=== PATIENT | female | born 1975 | race Caucasian/White ===

== ENCOUNTER 2016-04-25 18:02 | Emergency (ER) | payer OTHER ==
[~2016-04-25 18:02] MED LIST: CITA10TA5 PO; GABA600T PO; INSUHUMDS SC; LEVE1INJ5 SC; LISI2.5T3 PO; METF500T PO; METO200T15 PO; TOPI200T4 PO; VITA100054 PO
[2016-04-25 19:02] LABS: BASO # 0.2 K/mm3 (0.0-0.2); BASO % 1.7 % (0.0-1.0); EOS # 0.6 K/mm3 (0.0-0.50); EOS % 4.1 % (0.0-3.0); LARGE UNSTAINED CELL # 0.3 K/mm3 (0.0-0.4); LARGE UNSTAINED CELL % 2.1 % (0.0-4.0); LYMPH # 4.6 K/mm3 (1.5-4.5); LYMPH % 30.3 % (24.0-44.0); MEAN CORPUSCULAR HEMOGLOBIN 29.1 pg (27.0-33.0); MEAN CORPUSCULAR VOLUME 90.8 fl (80.0-96.0); MONO # 0.6 K/mm3 (0.0-0.8); MONO % 4.5 % (0.0-5.0); NEUTROPHILS # 8.2 K/mm3 (1.8-7.7); NEUTROPHILS % 57.3 % (36.0-66.0); PLATELET COUNT, AUTOMATED 506 k/mm3 (150-450); RED CELL DISTRIBUTION WIDTH 14.2 % (11.5-14.5); WHITE BLOOD COUNT 14.3 K/mm3 (4.0-10.0)
[2016-04-25 19:06] LABS: CALCIUM OXALATE CRYSTALS LARGE
[2016-04-25 19:16] LABS: CONTROL LINE HCG INT CTR LINE PRESENT
[2016-04-25 19:21] LABS: ANION GAP 12 MEQ/L (8-16); BLOOD UREA NITROGEN 11 MG/DL (7-18); CALCIUM LEVEL 9.4 MG/DL (8.5-10.1); CARBON DIOXIDE LEVEL 23 MEQ/L (21-32); CHLORIDE LEVEL 105 MEQ/L (98-107); CREATININE FOR GFR 1.02 MG/DL (0.55-1.02); GLOMERULAR FILTRATION RATE > 60.0 (>60); GLUCOSE, FASTING 160 MG/DL (70-105); POTASSIUM SERUM 3.7 MEQ/L (3.5-5.1); SODIUM LEVEL 140 MEQ/L (136-145)
[2016-04-25] MEDS ORDERED: ONDANSETRON 4MG/2ML VIAL (J2405) As Ordered ONE (20:13)
[2016-04-25] MEDS ORDERED: ISOVUE-370 76% 100ML VIAL (Q9967) As Ordered ONE (20:15)
[2016-04-25] MEDS ORDERED: MORPHINE 4 MG/ML 1ML SYRINGE As Ordered ONE (20:43)
--- NOTE | 2016-04-25 21:00 | REPUSA ---
CT of the abdomen and pelvis with contrast Clinical statement: Pain. Technique: Multiple axial CT images were obtained from the base of the lungs through the floor of the pelvis utilizing 5 mm axial slices after administration of nonionic intravenous contrast. Coronal an d sagittal reconstructions were also obtained. No comparison is available. Findings: Chest: The visualized lung bases are clear. Abdomen: The liver, spleen, pancreas, kidneys, gallbladder, and adrenal glands are unremarkable. The aorta is within normal limits. There is no evidence of abdominal lymphadenopathy or ascites. Pelvis: The bowel is unremarkable, with no obstructive or inflammatory changes. The appendix is maria lusia l. The urinary bladder is within normal limits. The other pelvic structures appear grossly intact. Th ere is a large cystic lesion in the right ovary measuring 6.8 x 8.1 cm. There is no evidence of pelvi c lymphadenopathy or ascites. Bones: There are no suspicious osseous abnormalities seen. Impression: Large simple cyst in the right ovary as described. Because of the large size of this lesi on, a follow-up ultrasound in 6 to 12 weeks to evaluate for resolution of this cyst is recommended.
[2016-04-25 21:23] LABS: ALKALINE PHOSPHATASE 90 U/L (45-117); ALT/SGPT 29 U/L (12-78); AMYLASE 38 U/L (25-115); AST/SGOT 13 U/L (15-37); BILIRUBIN,DIRECT 0.1 MG/DL (0.0-0.2); BILIRUBIN,TOTAL 0.3 MG/DL (0.2-1.0); TOTAL PROTEIN 7.7 GM/DL (6.4-8.2)
[2016-04-25 21:24] LABS: ALBUMIN 3.8 GM/DL (3.2-5.2); ALBUMIN/GLOBULIN RATIO 0.97 (1.00-1.93)
[2016-04-25] MEDS ORDERED: KETOROLAC 30 MG/ML VIAL (J1885) As Ordered ONE (21:25)
--- NOTE | 2016-04-25 22:40 | REPUSA ---
Clinical history: Pain. Comparison: CT, 04/25/2016. Findings: Real-time transabdominal and transvaginal ultrasound images of the pelvis were obtained. An anteverted uterus is noted, measuring 9.7 x 5.0 x 5.1 cm. The uterus demonstrates normal echotextur e and echogenicity. The endometrial stripe measures 5 mm and is within normal limits. The right ovary measures 8.2 x 6.5 x 9.0 cm. There is a right ovarian cystic lesion measuring 6.1 x 6.2 x 7.3 cm. Th e left ovary was not clearly visualized. There is no evidence of free fluid. Impression: Large right ovarian cyst, corresponding to the lesion seen on the prior CT study. Follow- up in 6 to 12 weeks is recommended.
[2016-04-25] MEDS ORDERED: NORCO 5/325MG TABLET (BULK) As Ordered ONE (22:54)
--- NOTE | 2016-04-25 23:03 | EDDOCDS ---
Physician Documentation [facility] Name: Abbie Mojica Age: 40 yrs Sex: Female : 1975 Arrival Date: 04/25/2016 Time: 18:02 Bed I4 / M4 Private MD: Alverto Ibarra Disposition: 04/25/16 22:50 Discharged to Home/Self Care. Impression: Other ovarian cysts - right complex. - Condition is Stable. - Discharge Instructions: Ovarian Cyst. - Prescriptions for Isaban 5- 325 mg Oral Tablet - take 1 tablet by ORAL route every 6 hours As needed MDD: 4 tabs; 20 tablet. ZOFRAN ODT 4 mg - dissolve 1 tablet by ORAL route 4 times per day As needed do not chew, do not swallow whole; 10 tablet. - Medication Reconciliation, Local Pharmacy Hours form. - Follow up: Luis Wilcox MD; When: Call to arrange an appointment; Reason: Recheck today's complaints, Continuance of care. - Problem is new. - Symptoms are unchanged. Historical: - Allergies: SULFA (SULFONAMIDES) (Rash); Latex (Hives, Rash); - Home Meds: 1. Humalog 100 unit/mL Sub-Q soln 10 units (Last dose: 04/25/2016 12:45) 2. levemir 75 units per day (Last dose: 04/24/2016 22:00) 3. metformin 1,000 mg Oral tab 1 tab 2 times per day (Last dose: 04/25/2016 12:45) 4. fenofibrate 160 mg oral tab 1 tab once daily (Last dose: 04/24/2016 21:00) 5. atorvastatin 80 mg oral tab 1 tab once daily (Last dose: 04/24/2016 21:00) 6. topiramate 50 mg oral cp24 1 cap once daily (Last dose: 04/25/2016 09:00) 7. topiramate 100 mg oral CSpX 1 cap once daily (Last dose: 04/24/2016 21:00) 8. gabapentin 600 mg Oral Tb24 twice daily (Last dose: 04/25/2016 09:00) 9. citalopram 10 mg Oral tab 1 tab once daily 10. Vitamin D Oral 50,000 unit weekly 11. Lisinopril Oral .25 mg (pt is unsure of dosage) - PMHx: Diabetes - IDDM: controlled; High Cholesterol; Migraines; Anxiety; - PSHx: ; D & C; Carpal Tunnel Repair- Left; Carpal Tunnel Repair- Right; Tonsillectomy; - Social history: Smoking status: Patient states was never smoker of tobacco. No barriers to communication noted, The patient speaks fluent German, Speaks appropriately for age, Preferred Language: German. - Family history: Not pertinent. - : The pt / caregiver states he / she is not on anticoagulants. Home medication list is obtained from the patient. 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 8 in. (142.24 cm) (R); 19:27 BP 121 / 76; Pulse 124; Resp 18; Pulse Ox 98% on R/A; Pain 8/10; lf1 20:54 BP 127 / 70; Pulse 110; Resp 20 S; Pulse Ox 96% on R/A; Pain 7/10; ms2 21:31 BP 112 / 67; Pulse 101; Resp 20 S; Pulse Ox 99% on R/A; ms2 18:04 Body Mass Index 43.05 (87.09 kg, 142.24 cm) dd6 MDM: 18:35 If pre-RCE wait time >60 minutes, inform reg. staff to do full reg ordered. kr3 18:35 If pt is female >10yo <50yo order UCG ordered. kr3 18:35 Undress patient appropriately for examination ordered. kr3 18:36 BMP Ordered. EDMS 18:36 CBC with Diff Ordered. EDMS 18:36 HCG,Serum Qualitative Ordered. EDMS 18:36 UA Ordered. EDMS 18:36 NOTHING BY MOUTH+DIET ordered. EDMS 20:06 Financial registration complete. zo 20:07 NS 0.9% 1000 ml IV at bolus once ordered. mo1 20:07 Ondansetron 4 mg IVP once ordered. mo1 20:07 IV Saline Lock ordered. mo1 20:07 CT ABD & PELVIS: IV Contrast Only Ordered. EDMS 20:08 NOTHING BY MOUTH+DIET ordered. EDMS 20:14 UA Reviewed. mo1 20:14 CBC with Diff Reviewed. mo1 20:15 BMP Reviewed. mo1 20:15 HCG,Serum Qualitative Reviewed. mo1 20:18 [facility] Payment Agreement was scanned into [employer] and attached to record. zo 20:28 morphine 4 mg IVP once ordered. mo1 21:21 -US Pelvic Non-Ob Complete Ordered. EDMS 21:21 DUPLEX SCAN LIMITED (DOPPLER)+US Ordered. EDMS 21:23 ketorolac 30 mg IVP once ordered. mo1 21:34 LIVER PROFILE Reviewed. mo1 21:34 BMP Reviewed. mo1 21:34 AMYLASE Reviewed. mo1 21:38 HCG,Serum Qualitative Reviewed. mo1 21:39 CT ABD & PELVIS: IV Contrast Only Reviewed. mo1 21:44 LIPASE Reviewed. mo1 22:19 LIVER PROFILE Reviewed. mo1 22:19 LIPASE Reviewed. mo1 22:19 AMYLASE Reviewed. mo1 22:20 BMP Reviewed. mo1 22:20 HCG,Serum Qualitative Reviewed. mo1 22:26 Transvaginal NON- US Ordered. EDMS 22:49 HYDROcodone-acetaminophen 4 pack- 5 mg-325 mg 1 packets PO Per package directions; mo1 Dispense with patient. 1 po q4h prn for pain ordered. Administered Medications: 04:00 Drug: morphine 4 mg [morphine 4 mg/mL intravenous cartridge (1 mL)] Route: IVP; Site: ms2 right antecubital; 20:54 Follow up: BP 127 / 70; Pulse 110 bpm; Resp 20 bpm Spontaneous; Pulse Ox 96% RA; Pain ms2 10/09 Adult; down from a 11/09 20:27 Drug: NS 0.9% 1000 ml [sodium chloride 0.9 % intravenous solution] Route: IV; Rate: ms2 bolus; Site: right antecubital; 20:27 Drug: Ondansetron 4 mg Route: IVP; Site: right antecubital; ms2 21:27 Drug: ketorolac 30 mg [ketorolac 30 mg/mL (1 mL) injection solution (1 mL)] Route: IVP; ms2 Site: right antecubital; 21:31 Follow up: BP 112 / 67; Pulse 101 bpm; Resp 20 bpm Spontaneous; Pulse Ox 99% RA ms2 23:01 Drug: HYDROcodone-acetaminophen 4 pack- 1 packets [hydrocodone 5 mg-acetaminophen 325 ms2 mg tablet (1 tabs)] {Co-Signature: [id number] (Dawna Estevez RN).} Route: PO; Signatures: Dispatcher [employer] Kamlesh Lisa,SANDRA RN ms2 Sirisha Clark RN RN kr3 Rocio Sheldon Lisa, RN RN lf1 Alan Griffith PA PA mo1 Dawna Estevez RN ms18 The chart was reviewed and I authenticate all verbal orders and agree with the evaluation and treatment provided.Corrections: (The following items were deleted from the chart) 20:17 20:07 URINALYSIS+LAB ordered. EDMS EDMS 21:00 20:07 AMYLASE+LAB ordered. EDMS EDMS 21:00 20:07 LIPASE+LAB ordered. EDMS EDMS 21:00 20:07 LIVER PROFILE+LAB ordered. EDMS EDMS Attachments: 20:18 [facility] Payment Agreement zo MTDD
--- NOTE | 2016-04-25 23:03 | EDDOCDS ---
Nurse's Notes [facility] Name: Abbie Mojica Age: 40 yrs Sex: Female : 1975 Arrival Date: 04/25/2016 Time: 18:02 Bed I4 / M4 Private MD: Alverto Ibarra Diagnosis: Other ovarian cysts-right complex Presentation: 04/25 18:21 Presenting complaint: Patient states: Lower abdominal pain that has been ongoing for 5 lf1 days and radiates to her back. Pt reports pain is currently 9/10 with nausea. Pt reports that her PCP is Dr. Ibarra at [facility]. Adult Sepsis Screening: The patient does not have new or worsening altered mentation. Patient's respiratory rate is less than 22. Systolic blood pressure is greater than 100. Patient has a qSOFA score of 0- Negative Sepsis Screen. Suicide/Homicide risk assessment- the patient denies having any suicidal and/or homicidal ideations and does not present with any other emotional, behavioral or mental health complaints. Status: Patient is not a answering service agent or dependent. Transition of care: patient was not received from another setting of care. 18:21 Acuity: JIMMY Level 3 lf1 18:21 Method Of Arrival: Walkin/Carried/Asstd lf1 Triage Assessment: 18:30 General: Appears obese, Behavior is cooperative. Pain: Location: abdomen Pain currently lf1 is 8 out of 10 on a pain scale. HIV screening NA for this visit Offered previously. Neurological: Level of Consciousness is awake, alert. Respiratory: Respiratory effort is even, unlabored. GI: Abdomen is obese, Reports lower abdominal pain, nausea. Derm: Skin is normal. 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 Humalog 100 unit/mL Sub-Q soln 10 units (Last dose: 04/25/2016 12:45) 2. levemir 75 units per day (Last dose: 04/24/2016 22:00) 3. metformin 1,000 mg Oral tab 1 tab 2 times per day (Last dose: 04/25/2016 12:45) 4. fenofibrate 160 mg oral tab 1 tab once daily (Last dose: 04/24/2016 21:00) 5. atorvastatin 80 mg oral tab 1 tab once daily (Last dose: 04/24/2016 21:00) 6. topiramate 50 mg oral cp24 1 cap once daily (Last dose: 04/25/2016 09:00) 7. topiramate 100 mg oral CSpX 1 cap once daily (Last dose: 04/24/2016 21:00) 8. gabapentin 600 mg Oral Tb24 twice daily (Last dose: 04/25/2016 09:00) 9. citalopram 10 mg Oral tab 1 tab once daily 10. Vitamin D Oral 50,000 unit weekly 11. Lisinopril Oral .25 mg (pt is unsure of dosage) - PMHx: Diabetes - IDDM: controlled; High Cholesterol; Migraines; Anxiety; - PSHx: ; D & C; Carpal Tunnel Repair- Left; Carpal Tunnel Repair- Right; Tonsillectomy; - Social history: Smoking status: Patient states was never smoker of tobacco. No barriers to communication noted, The patient speaks fluent [place], Speaks appropriately for age, Preferred Language: Uruguayan. - Family history: Not pertinent. - : The pt / caregiver states he / she is not on anticoagulants. Home medication list is obtained from the patient. 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 Screenin:32 Screening information is obtained from the patient. Fall risk: No risks identified. lf1 Assistance ADL's: requires no assistance with activities of daily living. Abuse/DV Screen: The patient / caregiver reports he/she is: not in a situation that causes fear, pain or injury. Nutritional screening: On diabetic diet. Advance Directives: Currently, there is no health care proxy. There is no active DNR order. home support is adequate. Assessment: 19:27 Adult Sepsis Screening: The patient does not have new or worsening altered mentation. lf1 Patient's respiratory rate is less than 22. Systolic blood pressure is greater than 100. Patient has a qSOFA score of 0- Negative Sepsis Screen. General: Appears uncomfortable, Behavior is cooperative. Pain: Location: right lower quadrant and left lower quadrant Pain currently is 8 out of 10 on a pain scale. Quality of pain is described as sharp. Neurological: Level of Consciousness is awake, alert, Oriented to person, place. EENT: No deficits noted. Cardiovascular: Chest pain is denied. Respiratory: Respiratory effort is even, unlabored. GI: Abdomen is obese, Reports lower abdominal pain. : Denies burning with urination. Derm: No deficits noted. 20:28 General: Appears in no apparent distress. Pain: Location: left lower quadrant and right ms2 lower quadrant Pain currently is 8 out of 10 on a pain scale. Respiratory: No deficits noted. Derm: Skin is pink, warm & dry. Musculoskeletal: No deficits noted. 20:45 General: back from ct ---no reaction to iv contrast. Neurological: No deficits noted. ms2 Respiratory: Respiratory effort is even, unlabored. Derm: Skin is pink, warm & dry. 20:55 General: medicated for pain per order. Neurological: No deficits noted. Respiratory: ms2 Airway is patent Respiratory effort is even, unlabored, Respiratory pattern is regular, symmetrical. Derm: Skin is pink, warm & dry. 21:31 General: Appears in no apparent distress, medicated for pain. Pain: Pain currently is 7 ms2 out of 10 on a pain scale. Neurological: No deficits noted. Respiratory: Respiratory effort is even, unlabored. Derm: Skin is pink, warm & dry. Musculoskeletal: No deficits noted. 22:42 General: Appears in no apparent distress, Behavior is cooperative. Pain: Location: pt ms2 declines anything for pain presently Pain currently is 8 out of 10 on a pain scale. Neurological: Level of Consciousness is awake, alert, obeys commands. Respiratory: Respiratory effort is even, unlabored. GI: Abdomen is non- distended obese. Derm: Skin is pink, warm & dry. Musculoskeletal: Range of motion intact in all extremities. Vital Signs: 18:04 BP 135 / 89; Pulse 130; Resp 18 S; Temp 99.8(O); Pulse Ox 99% on R/A; Weight 87.09 kg dd6 (R); Height 4 ft. 8 in. (142.24 cm) (R); 19:27 BP 121 / 76; Pulse 124; Resp 18; Pulse Ox 98% on R/A; Pain 8/10; lf1 20:54 BP 127 / 70; Pulse 110; Resp 20 S; Pulse Ox 96% on R/A; Pain 7/10; ms2 21:31 BP 112 / 67; Pulse 101; Resp 20 S; Pulse Ox 99% on R/A; ms2 18:04 Body Mass Index 43.05 (87.09 kg, 142.24 cm) dd6 Vitals: 18:04 Log In Time: April 25, 2016 at 18:02. dd6 ED Course: 18:03 Patient visited by Guerrero Pal PCA. dd6 18:03 Patient moved to Waiting dd6 18:04 Alverto Ibarra is Private Physician. dd6 18:05 Patient moved to Pre RCE dd6 18:23 Triage Initiated lf1 18:35 Patient moved to PR1 / 25 mdr 18:48 Patient moved to Pre RCE mdr 18:48 BMP Sent. mdr 18:48 CBC with Diff Sent. mdr 18:48 HCG,Serum Qualitative Sent. mdr 18:48 UA Sent. mdr 19:25 Patient moved to Triage 1 lf1 19:29 Patient visited by Zulema Capellan RN. lf1 19:33 Alan Griffith PA is PHCP. mo1 19:33 Beto Perez MD is Attending Physician. mo1 19:49 Patient visited by Alan Griffith PA. mo1 19:54 Patient moved to I4 / M4 mdr 20:18 [facility] [place] Agreement was scanned into [employer] and attached to record. zo 20:28 The patient / caregiver is instructed regarding the plan of care and ED course. ms2 20:28 Inserted peripheral IV: 20gauge IV in right hand Patient tolerated the procedure well. ms2 No procedures done that require assistance. 20:53 Patient visited by Kamlesh Browning RN. ms2 20:54 The patient / caregiver is instructed regarding the plan of care and ED course. ms2 20:54 IV is patent, is intact, is free of redness or swelling. solution is infusing as ms2 ordered. 20:56 The patient / caregiver is instructed regarding the plan of care and ED course. ms2 21:22 CT ABD & PELVIS: IV Contrast Only Returned. EDMS 21:24 Patient visited by Kamlesh Browning RN. ms2 21:32 The patient / caregiver is instructed regarding the plan of care and ED course. ms2 21:32 IV is patent, is intact, is free of redness or swelling. solution is infusing as ms2 ordered. 22:00 Patient moved to Ultrasound dmg 22:22 Patient moved to I4 / M4 dmg 22:42 Patient visited by Kamlesh Browning RN. ms2 22:43 The patient / caregiver is instructed regarding the plan of care and ED course. ms2 22:43 Discontinued lock intact, bleeding controlled, pressure dressing applied, No ms2 redness/swelling at site. SL clotted--ok to remove per PA. 22:50 Luis Wilcox MD is Referral Physician. mo1 23:02 The patient / caregiver is instructed regarding the plan of care and ED course. ms2 Administered Medications: 04:00 Drug: morphine 4 mg [morphine 4 mg/mL intravenous cartridge (1 mL)] Route: IVP; Site: ms2 right antecubital; 20:54 Follow up: BP 127 / 70; Pulse 110 bpm; Resp 20 bpm Spontaneous; Pulse Ox 96% RA; Pain ms2 10/09 Adult; down from a 11/09 20:27 Drug: NS 0.9% 1000 ml [sodium chloride 0.9 % intravenous solution] Route: IV; Rate: ms2 bolus; Site: right antecubital; 20:27 Drug: Ondansetron 4 mg Route: IVP; Site: right antecubital; ms2 21:27 Drug: ketorolac 30 mg [ketorolac 30 mg/mL (1 mL) injection solution (1 mL)] Route: IVP; ms2 Site: right antecubital; 21:31 Follow up: BP 112 / 67; Pulse 101 bpm; Resp 20 bpm Spontaneous; Pulse Ox 99% RA ms2 23:01 Drug: HYDROcodone-acetaminophen 4 pack- 1 packets [hydrocodone 5 mg-acetaminophen 325 ms2 mg tablet (1 tabs)] {Co-Signature: ms18 (Dawna Estevez RN).} Route: PO; Intake: 22:44 PO: 0.00ml; IV: 1000.00ml (NS); Total: 1000.00ml. ms2 22:44 voided x1 in ed ms2 Order Results: Lab Order: BMP; SPEC'M 04/25/16 18:44 Test: GLUCOSE, FASTING; Value: 160; Range: 70-105; Abnormal: Above high normal; Units: MG/DL; Status: F Test: BLOOD UREA NITROGEN; Value: 11; Range: 7-18; Units: MG/DL; Status: F Test: CREATININE FOR GFR; Value: 1.02; Range: 0.55-1.02; Units: MG/DL; Status: F Test: SODIUM LEVEL; Range: 136-145; Units: MEQ/L; Status: I Test: POTASSIUM SERUM; Range: 3.5-5.1; Units: MEQ/L; Status: I Test: CHLORIDE LEVEL; Range: 98-107; Units: MEQ/L; Status: I Test: CARBON DIOXIDE LEVEL; Range: 21-32; Units: MEQ/L; Status: I Test: ANION GAP; Range: 8-16; Units: MEQ/L; Status: I Test: CALCIUM LEVEL; Range: 8.5-10.1; Units: MG/DL; Status: I Test: GLOMERULAR FILTRATION RATE; Value: > 60.0; Range: >60; Status: F Test: SODIUM LEVEL; Value: 140; Range: 136-145; Units: MEQ/L; Status: F Test: POTASSIUM SERUM; Value: 3.7; Range: 3.5-5.1; Units: MEQ/L; Status: F Test: CHLORIDE LEVEL; Value: 105; Range: 98-107; Units: MEQ/L; Status: F Test: CARBON DIOXIDE LEVEL; Value: 23; Range: 21-32; Units: MEQ/L; Status: F Test: ANION GAP; Value: 12; Range: 8-16; Units: MEQ/L; Status: F Test: CALCIUM LEVEL; Value: 9.4; Range: 8.5-10.1; Units: MG/DL; Status: F Test Note: ; Units are mL/min/1.73 m2 Chronic Kidney Disease Staging per NKF: Stage I & II GFR >=60 Normal to Mildly Decreased Stage III GFR 30-59 Moderately Decreased Stage IV GFR 15-29 Severely Decreased Stage V GFR <15 Very Little GFR Left ESRD GFR <15 on SOLUTION CONSULTANT Lab Order: CBC with Diff; SPEC'M 04/25/16 18:44 Test: WHITE BLOOD COUNT; Value: 14.3; Range: 4.0-10.0; Abnormal: Above high normal; Units: K/mm3; Status: F Test: RED BLOOD COUNT; Value: 4.53; Range: 4.00-5.40; Units: M/mm3; Status: F Test: HEMOGLOBIN; Value: 13.2; Range: 12.0-16.0; Units: g/dl; Status: F Test: HEMATOCRIT; Value: 41.1; Range: 36.0-47.0; Units: %; Status: F Test: MEAN CORPUSCULAR VOLUME; Value: 90.8; Range: 80.0-96.0; Units: fl; Status: F Test: MEAN CORPUSCULAR HEMOGLOBIN; Value: 29.1; Range: 27.0-33.0; Units: pg; Status: F Test: MEAN CORPUSCULAR HGB CONC; Value: 32.0; Range: 32.0-36.5; Units: g/dl; Status: F Test: RED CELL DISTRIBUTION WIDTH; Value: 14.2; Range: 11.5-14.5; Units: %; Status: F Test: PLATELET COUNT, AUTOMATED; Value: 506; Range: 150-450; Abnormal: Above high normal; Units: k/mm3; Status: F Test: NEUTROPHILS %; Value: 57.3; Range: 36.0-66.0; Units: %; Status: F Test: LYMPH %; Value: 30.3; Range: 24.0-44.0; Units: %; Status: F Test: MONO %; Value: 4.5; Range: 0.0-5.0; Units: %; Status: F Test: EOS %; Value: 4.1; Range: 0.0-3.0; Abnormal: Above high normal; Units: %; Status: F Test: BASO %; Value: 1.7; Range: 0.0-1.0; Abnormal: Above high normal; Units: %; Status: F Test: LARGE UNSTAINED CELL %; Value: 2.1; Range: 0.0-4.0; Units: %; Status: F Test: NEUTROPHILS #; Value: 8.2; Range: 1.8-7.7; Abnormal: Above high normal; Units: K/mm3; Status: F Test: LYMPH #; Value: 4.6; Range: 1.5-4.5; Abnormal: Above high normal; Units: K/mm3; Status: F Test: MONO #; Value: 0.6; Range: 0.0-0.8; Units: K/mm3; Status: F Test: EOS #; Value: 0.6; Range: 0.0-0.50; Abnormal: Above high normal; Units: K/mm3; Status: F Test: BASO #; Value: 0.2; Range: 0.0-0.2; Units: K/mm3; Status: F Test: LARGE UNSTAINED CELL #; Value: 0.3; Range: 0.0-0.4; Units: K/mm3; Status: F Lab Order: HCG,Serum Qualitative; SPEC'M 04/25/16 18:44 Test: HCG, SERUM QUALITATIVE; Value: NEGATIVE; Range: NEGATIVE; Status: F Lab Order: UA; SPEC'M 04/25/16 18:44 Test: APPEARANCE, URINE; Value: CLOUDY; Range: CLEAR; Abnormal: Above high normal; Status: F Test: COLOR, URINE; Value: YELLOW; Range: YELLOW; Status: F Test: PH,URINE; Value: 5.0; Range: 5.0-9.0; Units: UNITS; Status: F Test: SPECIFIC GRAVITY URINE AUTO; Value: 1.023; Range: 1.002-1.035; Status: F Test: PROTEIN, URINE AUTO; Value: NEGATIVE; Range: NEGATIVE; Units: mg/dL; Status: F Test: GLUCOSE, URINE (UA) AUTO; Value: NEGATIVE; Range: NEGATIVE; Units: mg/dL; Status: F Test: KETONE, URINE AUTO; Value: NEGATIVE; Range: NEGATIVE; Units: mg/dL; Status: F Test: UROBILINOGEN, URINE AUTO; Value: 0.2; Range: 0.0-2.0; Units: mg/dL; Status: F Test: BILIRUBIN, URINE AUTO; Value: NEGATIVE; Range: NEGATIVE; Status: F Test: NITRITE, URINE AUTO; Value: NEGATIVE; Range: NEGATIVE; Status: F Test: LEUKOCYTE ESTERASE, URINE AUTO; Value: NEGATIVE; Range: NEGATIVE; Status: F Test: BLOOD, URINE BLOOD; Value: NEGATIVE; Range: NEGATIVE; Status: F Test: WBC, URINE AUTO; Value: 2; Range: 0-3; Units: /HPF; Status: F Test: RBC, URINE AUTO; Value: 3; Range: 0-3; Units: /HPF; Status: F Test: BACTERIA, URINE AUTO; Value: 1+; Range: NEGATIVE; Abnormal: Above high normal; Status: F Test: SQUAMOUS EPITHELIAL CELL UR AU; Value: 21; Range: 0-6; Units: /HPF; Status: F Test: MUCUS, URINE; Value: SMALL; Range: NEGATIVE; Status: F Test: HYALINE CAST, URINE AUTO; Value: 0; Range: 0-1; Units: /LPF; Status: F Test: CALCIUM OXALATE CRYSTALS; Value: LARGE; Range: NONE; Status: F Lab Order: LIVER PROFILE; [facility]' 04/25/16 18:44 Test: AST/SGOT; Value: 13; Range: 15-37; Abnormal: Below low normal; Units: U/L; Status: F Test: ALT/SGPT; Value: 29; Range: 12-78; Units: U/L; Status: F Test: ALKALINE PHOSPHATASE; Value: 90; Range: 45-117; Units: U/L; Status: F Test: BILIRUBIN,TOTAL; Value: 0.3; Range: 0.2-1.0; Units: MG/DL; Status: F Test: BILIRUBIN,DIRECT; Value: 0.1; Range: 0.0-0.2; Units: MG/DL; Status: F Test: TOTAL PROTEIN; Value: 7.7; Range: 6.4-8.2; Units: GM/DL; Status: F Test: ALBUMIN; Value: 3.8; Range: 3.2-5.2; Units: GM/DL; Status: F Test: ALBUMIN/GLOBULIN RATIO; Value: 0.97; Range: 1.00-1.93; Abnormal: Below low normal; Status: F Lab Order: AMYLASE; [facility]' 04/25/16 18:44 Test: AMYLASE; Value: 38; Range: 25-115; Units: U/L; Status: F Lab Order: LIPASE; [facility]' 04/25/16 18:44 Test: LIPASE; Value: 114; Range: 73-393; Units: U/L; Status: F Radiology Order: CT ABD & PELVIS: IV Contrast Only Test: CT ABD & PELVIS: IV Contrast Only REASON FOR EXAMINATION: Diverticulitis; ; CT of the abdomen and pelvis with contrast; Clinical statement: Pain.; Technique: Multiple axial CT images were obtained from the base of the lungs through the floor of the; pelvis utilizing 5 mm axial slices after administration of nonionic intravenous contrast. Coronal an; d sagittal reconstructions were also obtained.; No comparison is available.; Findings:; Chest: The visualized lung bases are clear.; Abdomen: The liver, spleen, pancreas, kidneys, gallbladder, and adrenal glands are unremarkable. The; aorta is within normal limits. There is no evidence of abdominal lymphadenopathy or ascites.; Pelvis: The bowel is unremarkable, with no obstructive or inflammatory changes. The appendix is maria luisa; l. The urinary bladder is within normal limits. The other pelvic structures appear grossly intact. Th; ere is a large cystic lesion in the right ovary measuring 6.8 x 8.1 cm. There is no evidence of pelvi; c lymphadenopathy or ascites.; Bones: There are no suspicious osseous abnormalities seen.; Impression: Large simple cyst in the right ovary as described. Because of the large size of this lesi; on, a follow-up ultrasound in 6 to 12 weeks to evaluate for resolution of this cyst is recommended.; ; Outcome: 22:50 Discharge ordered by Provider. mo1 23:01 Discharge Assessment: patient administered narcotics - yes. Pt provided with safe ms2 discharge. The following High Risk Discharge criteria are identified: None. Discharged to home ambulatory, with significant other. Condition: stable. Discharge instructions given to patient, Instructed on discharge instructions, follow up and referral plans. medication usage, no driving heavy equipment, no drinking with medication, Demonstrated understanding of instructions, medications, Pt was receptive of discharge instructions/ teaching. Prescriptions given X [address] Study completed. Ultrasound Study completed. Property sent home with patient. 23:02 Patient left the ED. ms2 Signatures: Dispatcher [employer] EDMS Kamlesh Browning RN RN ms2 Crystal Islas Zoeann zo Ford, Lisa, RN RN lf1 Guerrero Pal, HVAC SALES ENGINEER HVAC SALES ENGINEER dd6 Alan Griffith PA PA mo1 Helio Christianson, HVAC SALES ENGINEER HVAC SALES ENGINEER miguel ángel Estevez RN ms18 Corrections: (The following items were deleted from the chart) 20:17 20:14 URINALYSIS+LAB sent. mo1 EDMS 21:00 20:11 AMYLASE+LAB sent. ms2 EDMS 21:00 20:11 LIPASE+LAB sent. ms2 EDMS 21:00 20:11 LIVER PROFILE+LAB sent. ms2 EDMS 22:44 22:42 Pain: Pain currently is 8 out of 10 on a pain scale. ms2 ms2 MTDD
--- NOTE | 2016-04-28 00:04 | EDDOCDS ---
Physician Documentation [facility] Name: Abbie Mojica Age: 40 yrs Sex: Female : 1975 Arrival Date: 04/25/2016 Time: 18:02 Bed I4 / M4 Private MD: Alverto Ibarra Disposition: 04/25/16 22:50 Discharged to Home/Self Care. Impression: Other ovarian cysts - right complex. - Condition is Stable. - Discharge Instructions: Ovarian Cyst. - Prescriptions for [place] 5- 325 mg Oral Tablet - take 1 tablet by ORAL route every 6 hours As needed MDD: 4 tabs; 20 tablet. ZOFRAN ODT 4 mg - dissolve 1 tablet by ORAL route 4 times per day As needed do not chew, do not swallow whole; 10 tablet. - Medication Reconciliation, Local Pharmacy Hours form. - Follow up: Luis Wilcox MD; When: Call to arrange an appointment; Reason: Recheck today's complaints, Continuance of care. - Problem is new. - Symptoms are unchanged. Historical: - Allergies: SULFA (SULFONAMIDES) (Rash); Latex (Hives, Rash); - Home Meds: 1. Humalog 100 unit/mL Sub-Q soln 10 units (Last dose: 04/25/2016 12:45) 2. levemir 75 units per day (Last dose: 04/24/2016 22:00) 3. metformin 1,000 mg Oral tab 1 tab 2 times per day (Last dose: 04/25/2016 12:45) 4. fenofibrate 160 mg oral tab 1 tab once daily (Last dose: 04/24/2016 21:00) 5. atorvastatin 80 mg oral tab 1 tab once daily (Last dose: 04/24/2016 21:00) 6. topiramate 50 mg oral cp24 1 cap once daily (Last dose: 04/25/2016 09:00) 7. topiramate 100 mg oral CSpX 1 cap once daily (Last dose: 04/24/2016 21:00) 8. gabapentin 600 mg Oral Tb24 twice daily (Last dose: 04/25/2016 09:00) 9. citalopram 10 mg Oral tab 1 tab once daily 10. Vitamin D Oral 50,000 unit weekly 11. Lisinopril Oral .25 mg (pt is unsure of dosage) - PMHx: Diabetes - IDDM: controlled; High Cholesterol; Migraines; Anxiety; - PSHx: ; D & C; Carpal Tunnel Repair- Left; Carpal Tunnel Repair- Right; Tonsillectomy; - Social history: Smoking status: Patient states was never smoker of tobacco. No barriers to communication noted, The patient speaks fluent [place], Speaks appropriately for age, Preferred Language: [place]. - Family history: Not pertinent. - : The pt / caregiver states he / she is not on anticoagulants. Home medication list is obtained from the patient. 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 8 in. (142.24 cm) (R); 19:27 BP 121 / 76; Pulse 124; Resp 18; Pulse Ox 98% on R/A; Pain 8/10; lf1 20:54 BP 127 / 70; Pulse 110; Resp 20 S; Pulse Ox 96% on R/A; Pain 7/10; ms2 21:31 BP 112 / 67; Pulse 101; Resp 20 S; Pulse Ox 99% on R/A; ms2 23:00 BP 107 / 67; Pulse 103; Resp 20 S; Temp 99.6(O); Pulse Ox 96% on R/A; ms2 18:04 Body Mass Index 43.05 (87.09 kg, 142.24 cm) dd6 MDM: 18:35 If pre-RCE wait time >60 minutes, inform reg. staff to do full reg ordered. kr3 18:35 If pt is female >10yo <50yo order UCG ordered. kr3 18:35 Undress patient appropriately for examination ordered. kr3 18:36 BMP Ordered. EDMS 18:36 CBC with Diff Ordered. EDMS 18:36 HCG,Serum Qualitative Ordered. EDMS 18:36 UA Ordered. EDMS 18:36 NOTHING BY MOUTH+DIET ordered. EDMS 20:06 Financial registration complete. zo 20:07 NS 0.9% 1000 ml IV at bolus once ordered. mo1 20:07 Ondansetron 4 mg IVP once ordered. mo1 20:07 IV Saline Lock ordered. mo1 20:07 CT ABD & PELVIS: IV Contrast Only Ordered. EDMS 20:08 NOTHING BY MOUTH+DIET ordered. EDMS 20:14 UA Reviewed. mo1 20:14 CBC with Diff Reviewed. mo1 20:15 BMP Reviewed. mo1 20:15 HCG,Serum Qualitative Reviewed. mo1 20:18 [facility] [place] Agreement was scanned into [employer] and attached to record. zo 20:28 morphine 4 mg IVP once ordered. mo1 21:21 -US Pelvic Non-Ob Complete Ordered. EDMS 21:21 DUPLEX SCAN LIMITED (DOPPLER)+US Ordered. EDMS 21:23 ketorolac 30 mg IVP once ordered. mo1 21:34 LIVER PROFILE Reviewed. mo1 21:34 BMP Reviewed. mo1 21:34 AMYLASE Reviewed. mo1 21:38 HCG,Serum Qualitative Reviewed. mo1 21:39 CT ABD & PELVIS: IV Contrast Only Reviewed. mo1 21:44 LIPASE Reviewed. mo1 22:19 LIVER PROFILE Reviewed. mo1 22:19 LIPASE Reviewed. mo1 22:19 AMYLASE Reviewed. mo1 22:20 BMP Reviewed. mo1 22:20 HCG,Serum Qualitative Reviewed. mo1 22:26 Transvaginal NON- US Ordered. EDMS 22:49 HYDROcodone-acetaminophen 4 pack- 5 mg-325 mg 1 packets PO Per package directions; mo1 Dispense with patient. 1 po q4h prn for pain ordered. 04/26 02:28 T-Sheet-- Draft Copy was scanned into [employer] and attached to record. hs2 11:03 Radiology Report was scanned into [employer] and attached to record. gb Administered Medications: 04/25 04:00 Drug: morphine 4 mg [morphine 4 mg/mL intravenous cartridge (1 mL)] Route: IVP; Site: ms2 right antecubital; 20:54 Follow up: BP 127 / 70; Pulse 110 bpm; Resp 20 bpm Spontaneous; Pulse Ox 96% RA; Pain ms2 10/09 Adult; down from a 11/09 20:27 Drug: NS 0.9% 1000 ml [sodium chloride 0.9 % intravenous solution] Route: IV; Rate: ms2 bolus; Site: right antecubital; 20:27 Drug: Ondansetron 4 mg Route: IVP; Site: right antecubital; ms2 21:27 Drug: ketorolac 30 mg [ketorolac 30 mg/mL (1 mL) injection solution (1 mL)] Route: IVP; ms2 Site: right antecubital; 21:31 Follow up: BP 112 / 67; Pulse 101 bpm; Resp 20 bpm Spontaneous; Pulse Ox 99% RA ms2 23:01 Drug: HYDROcodone-acetaminophen 4 pack- 1 packets [hydrocodone 5 mg-acetaminophen 325 ms2 mg tablet (1 tabs)] {Co-Signature: ms18 (Dawna Estevez RN).} Route: PO; Signatures: Dispatcher [employer] EDMS Kamlesh Browning RN RN ms2 Susannah Kuhn, Reg Reg gb Sirisha Clark RN RN kr3 Rocio Sheldon LisaRN RN lf1 Alan Griffith PA PA mo1 Aniya Mcdermott, Reg Reg hs2 Dawna Estevez RN ms18 The chart was reviewed and I authenticate all verbal orders and agree with the evaluation and treatment provided.Corrections: (The following items were deleted from the chart) 20:17 20:07 URINALYSIS+LAB ordered. EDMS EDMS 21:00 20:07 AMYLASE+LAB ordered. EDMS EDMS 21:00 20:07 LIPASE+LAB ordered. EDMS EDMS 21:00 20:07 LIVER PROFILE+LAB ordered. EDMS EDMS Attachments: 20:18 [facility] Payment Agreement zo 04/26 02:28 T-Sheet-- Draft Copy hs2 Chart Complete MTDD
--- NOTE | 2016-04-28 00:04 | EDDOCDS ---
Physician Documentation [facility] Name: Abbie Mojica Age: 40 yrs Sex: Female : 1975 Arrival Date: 04/25/2016 Time: 18:02 Bed I4 / M4 Private MD: Alverto Ibarra Disposition: 04/25/16 22:50 Discharged to Home/Self Care. Impression: Other ovarian cysts - right complex. - Condition is Stable. - Discharge Instructions: Ovarian Cyst. - Prescriptions for [place] 5- 325 mg Oral Tablet - take 1 tablet by ORAL route every 6 hours As needed MDD: 4 tabs; 20 tablet. ZOFRAN ODT 4 mg - dissolve 1 tablet by ORAL route 4 times per day As needed do not chew, do not swallow whole; 10 tablet. - Medication Reconciliation, Local Pharmacy Hours form. - Follow up: Luis Wilcox MD; When: Call to arrange an appointment; Reason: Recheck today's complaints, Continuance of care. - Problem is new. - Symptoms are unchanged. Historical: - Allergies: SULFA (SULFONAMIDES) (Rash); Latex (Hives, Rash); - Home Meds: 1. Humalog 100 unit/mL Sub-Q soln 10 units (Last dose: 04/25/2016 12:45) 2. levemir 75 units per day (Last dose: 04/24/2016 22:00) 3. metformin 1,000 mg Oral tab 1 tab 2 times per day (Last dose: 04/25/2016 12:45) 4. fenofibrate 160 mg oral tab 1 tab once daily (Last dose: 04/24/2016 21:00) 5. atorvastatin 80 mg oral tab 1 tab once daily (Last dose: 04/24/2016 21:00) 6. topiramate 50 mg oral cp24 1 cap once daily (Last dose: 04/25/2016 09:00) 7. topiramate 100 mg oral CSpX 1 cap once daily (Last dose: 04/24/2016 21:00) 8. gabapentin 600 mg Oral Tb24 twice daily (Last dose: 04/25/2016 09:00) 9. citalopram 10 mg Oral tab 1 tab once daily 10. Vitamin D Oral 50,000 unit weekly 11. Lisinopril Oral .25 mg (pt is unsure of dosage) - PMHx: Diabetes - IDDM: controlled; High Cholesterol; Migraines; Anxiety; - PSHx: ; D & C; Carpal Tunnel Repair- Left; Carpal Tunnel Repair- Right; Tonsillectomy; - Social history: Smoking status: Patient states was never smoker of tobacco. No barriers to communication noted, The patient speaks fluent Kazakh, Speaks appropriately for age, Preferred Language: Kazakh. - Family history: Not pertinent. - : The pt / caregiver states he / she is not on anticoagulants. Home medication list is obtained from the patient. 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 8 in. (142.24 cm) (R); 19:27 BP 121 / 76; Pulse 124; Resp 18; Pulse Ox 98% on R/A; Pain 8/10; lf1 20:54 BP 127 / 70; Pulse 110; Resp 20 S; Pulse Ox 96% on R/A; Pain 7/10; ms2 21:31 BP 112 / 67; Pulse 101; Resp 20 S; Pulse Ox 99% on R/A; ms2 23:00 BP 107 / 67; Pulse 103; Resp 20 S; Temp 99.6(O); Pulse Ox 96% on R/A; ms2 18:04 Body Mass Index 43.05 (87.09 kg, 142.24 cm) dd6 MDM: 18:35 If pre-RCE wait time >60 minutes, inform reg. staff to do full reg ordered. kr3 18:35 If pt is female >10yo <50yo order UCG ordered. kr3 18:35 Undress patient appropriately for examination ordered. kr3 18:36 BMP Ordered. EDMS 18:36 CBC with Diff Ordered. EDMS 18:36 HCG,Serum Qualitative Ordered. EDMS 18:36 UA Ordered. EDMS 18:36 NOTHING BY MOUTH+DIET ordered. EDMS 20:06 Financial registration complete. zo 20:07 NS 0.9% 1000 ml IV at bolus once ordered. mo1 20:07 Ondansetron 4 mg IVP once ordered. mo1 20:07 IV Saline Lock ordered. mo1 20:07 CT ABD & PELVIS: IV Contrast Only Ordered. EDMS 20:08 NOTHING BY MOUTH+DIET ordered. EDMS 20:14 UA Reviewed. mo1 20:14 CBC with Diff Reviewed. mo1 20:15 BMP Reviewed. mo1 20:15 HCG,Serum Qualitative Reviewed. mo1 20:18 [place] [place] Payment Agreement was scanned into [employer] and attached to record. zo 20:28 morphine 4 mg IVP once ordered. mo1 21:21 -US Pelvic Non-Ob Complete Ordered. EDMS 21:21 DUPLEX SCAN LIMITED (DOPPLER)+US Ordered. EDMS 21:23 ketorolac 30 mg IVP once ordered. mo1 21:34 LIVER PROFILE Reviewed. mo1 21:34 BMP Reviewed. mo1 21:34 AMYLASE Reviewed. mo1 21:38 HCG,Serum Qualitative Reviewed. mo1 21:39 CT ABD & PELVIS: IV Contrast Only Reviewed. mo1 21:44 LIPASE Reviewed. mo1 22:19 LIVER PROFILE Reviewed. mo1 22:19 LIPASE Reviewed. mo1 22:19 AMYLASE Reviewed. mo1 22:20 BMP Reviewed. mo1 22:20 HCG,Serum Qualitative Reviewed. mo1 22:26 Transvaginal NON- US Ordered. EDMS 22:49 HYDROcodone-acetaminophen 4 pack- 5 mg-325 mg 1 packets PO Per package directions; mo1 Dispense with patient. 1 po q4h prn for pain ordered. 04/26 02:28 T-Sheet-- Draft Copy was scanned into [employer] and attached to record. hs2 11:03 Radiology Report was scanned into [employer] and attached to record. gb Administered Medications: 04/25 04:00 Drug: morphine 4 mg [morphine 4 mg/mL intravenous cartridge (1 mL)] Route: IVP; Site: ms2 right antecubital; 20:54 Follow up: BP 127 / 70; Pulse 110 bpm; Resp 20 bpm Spontaneous; Pulse Ox 96% RA; Pain ms2 10/09 Adult; down from a 11/09 20:27 Drug: NS 0.9% 1000 ml [sodium chloride 0.9 % intravenous solution] Route: IV; Rate: ms2 bolus; Site: right antecubital; 20:27 Drug: Ondansetron 4 mg Route: IVP; Site: right antecubital; ms2 21:27 Drug: ketorolac 30 mg [ketorolac 30 mg/mL (1 mL) injection solution (1 mL)] Route: IVP; ms2 Site: right antecubital; 21:31 Follow up: BP 112 / 67; Pulse 101 bpm; Resp 20 bpm Spontaneous; Pulse Ox 99% RA ms2 23:01 Drug: HYDROcodone-acetaminophen 4 pack- 1 packets [hydrocodone 5 mg-acetaminophen 325 ms2 mg tablet (1 tabs)] {Co-Signature: [id number] (Dawna Estevez RN).} Route: PO; Signatures: Dispatcher [employer] EDMS Kamlesh Browning RN RN ms2 Susannah Kuhn, Reg Reg gb Sirisha Clark RN RN kr3 Rocio Sheldon LisaRN RN lf1 Alan Griffith PA PA mo1 Aniya Mcdermott, Reg Reg hs2 Dawna Estevez RN ms18 The chart was reviewed and I authenticate all verbal orders and agree with the evaluation and treatment provided.Corrections: (The following items were deleted from the chart) 20:17 20:07 URINALYSIS+LAB ordered. EDMS EDMS 21:00 20:07 AMYLASE+LAB ordered. EDMS EDMS 21:00 20:07 LIPASE+LAB ordered. EDMS EDMS 21:00 20:07 LIVER PROFILE+LAB ordered. EDMS EDMS Attachments: 20:18 [facility] Payment Agreement zo 04/26 02:28 T-Sheet-- Draft Copy hs2 Chart Complete MTDD
--- NOTE | 2016-05-01 13:28 | EDDOCDS ---
Physician Documentation [facility] Name: Abbie Mojica Age: 40 yrs Sex: Female : 1975 Arrival Date: 04/25/2016 Time: 18:02 Bed I4 / M4 Private MD: Alverto Ibarra Disposition: 04/25/16 22:50 Discharged to Home/Self Care. Impression: Other ovarian cysts - right complex. - Condition is Stable. - Discharge Instructions: Ovarian Cyst. - Prescriptions for [place] 5- 325 mg Oral Tablet - take 1 tablet by ORAL route every 6 hours As needed MDD: 4 tabs; 20 tablet. ZOFRAN ODT 4 mg - dissolve 1 tablet by ORAL route 4 times per day As needed do not chew, do not swallow whole; 10 tablet. - Medication Reconciliation, Local Pharmacy Hours form. - Follow up: Luis Kwong MD; When: Call to arrange an appointment; Reason: Recheck today's complaints, Continuance of care. - Problem is new. - Symptoms are unchanged. Historical: - Allergies: SULFA (SULFONAMIDES) (Rash); Latex (Hives, Rash); - Home Meds: 1. Humalog 100 unit/mL Sub-Q soln 10 units (Last dose: 04/25/2016 12:45) 2. levemir 75 units per day (Last dose: 04/24/2016 22:00) 3. metformin 1,000 mg Oral tab 1 tab 2 times per day (Last dose: 04/25/2016 12:45) 4. fenofibrate 160 mg oral tab 1 tab once daily (Last dose: 04/24/2016 21:00) 5. atorvastatin 80 mg oral tab 1 tab once daily (Last dose: 04/24/2016 21:00) 6. topiramate 50 mg oral cp24 1 cap once daily (Last dose: 04/25/2016 09:00) 7. topiramate 100 mg oral CSpX 1 cap once daily (Last dose: 04/24/2016 21:00) 8. gabapentin 600 mg Oral Tb24 twice daily (Last dose: 04/25/2016 09:00) 9. citalopram 10 mg Oral tab 1 tab once daily 10. Vitamin D Oral 50,000 unit weekly 11. Lisinopril Oral .25 mg (pt is unsure of dosage) - PMHx: Diabetes - IDDM: controlled; High Cholesterol; Migraines; Anxiety; - PSHx: ; D & C; Carpal Tunnel Repair- Left; Carpal Tunnel Repair- Right; Tonsillectomy; - Social history: Smoking status: Patient states was never smoker of tobacco. No barriers to communication noted, The patient speaks fluent Libyan, Speaks appropriately for age, Preferred Language: Libyan. - Family history: Not pertinent. - : The pt / caregiver states he / she is not on anticoagulants. Home medication list is obtained from the patient. 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 8 in. (142.24 cm) (R); 19:27 BP 121 / 76; Pulse 124; Resp 18; Pulse Ox 98% on R/A; Pain 8/10; lf1 20:54 BP 127 / 70; Pulse 110; Resp 20 S; Pulse Ox 96% on R/A; Pain 7/10; ms2 21:31 BP 112 / 67; Pulse 101; Resp 20 S; Pulse Ox 99% on R/A; ms2 23:00 BP 107 / 67; Pulse 103; Resp 20 S; Temp 99.6(O); Pulse Ox 96% on R/A; ms2 18:04 Body Mass Index 43.05 (87.09 kg, 142.24 cm) dd6 MDM: 18:35 If pre-RCE wait time >60 minutes, inform reg. staff to do full reg ordered. kr3 18:35 If pt is female >10yo <50yo order UCG ordered. kr3 18:35 Undress patient appropriately for examination ordered. kr3 18:36 BMP Ordered. EDMS 18:36 CBC with Diff Ordered. EDMS 18:36 HCG,Serum Qualitative Ordered. EDMS 18:36 UA Ordered. EDMS 18:36 NOTHING BY MOUTH+DIET ordered. EDMS 20:06 Financial registration complete. zo 20:07 NS 0.9% 1000 ml IV at bolus once ordered. mo1 20:07 Ondansetron 4 mg IVP once ordered. mo1 20:07 IV Saline Lock ordered. mo1 20:07 CT ABD & PELVIS: IV Contrast Only Ordered. EDMS 20:08 NOTHING BY MOUTH+DIET ordered. EDMS 20:14 UA Reviewed. mo1 20:14 CBC with Diff Reviewed. mo1 20:15 BMP Reviewed. mo1 20:15 HCG,Serum Qualitative Reviewed. mo1 20:18 [place] [place] was [place] into [employer] and attached to record. zo 20:28 morphine 4 mg IVP once ordered. mo1 21:21 -US Pelvic Non-Ob Complete Ordered. EDMS 21:21 DUPLEX SCAN LIMITED (DOPPLER)+US Ordered. EDMS 21:23 ketorolac 30 mg IVP once ordered. mo1 21:34 LIVER PROFILE Reviewed. mo1 21:34 BMP Reviewed. mo1 21:34 AMYLASE Reviewed. mo1 21:38 HCG,Serum Qualitative Reviewed. mo1 21:39 CT ABD & PELVIS: IV Contrast Only Reviewed. mo1 21:44 LIPASE Reviewed. mo1 22:19 LIVER PROFILE Reviewed. mo1 22:19 LIPASE Reviewed. mo1 22:19 AMYLASE Reviewed. mo1 22:20 BMP Reviewed. mo1 22:20 HCG,Serum Qualitative Reviewed. mo1 22:26 Transvaginal NON- US Ordered. EDMS 22:49 HYDROcodone-acetaminophen 4 pack- 5 mg-325 mg 1 packets PO Per package directions; mo1 Dispense with patient. 1 po q4h prn for pain ordered. 04/26 02:28 T-Sheet-- Draft Copy was scanned into [employer] and attached to record. hs2 11:03 Radiology Report was scanned into [employer] and attached to record. gb Administered Medications: 04/25 04:00 Drug: morphine 4 mg [morphine 4 mg/mL intravenous cartridge (1 mL)] Route: IVP; Site: ms2 right antecubital; 20:54 Follow up: BP 127 / 70; Pulse 110 bpm; Resp 20 bpm Spontaneous; Pulse Ox 96% RA; Pain ms2 10/09 Adult; down from a 11/09 20:27 Drug: NS 0.9% 1000 ml [sodium chloride 0.9 % intravenous solution] Route: IV; Rate: ms2 bolus; Site: right antecubital; 20:27 Drug: Ondansetron 4 mg Route: IVP; Site: right antecubital; ms2 21:27 Drug: ketorolac 30 mg [ketorolac 30 mg/mL (1 mL) injection solution (1 mL)] Route: IVP; ms2 Site: right antecubital; 21:31 Follow up: BP 112 / 67; Pulse 101 bpm; Resp 20 bpm Spontaneous; Pulse Ox 99% RA ms2 23:01 Drug: HYDROcodone-acetaminophen 4 pack- 1 packets [hydrocodone 5 mg-acetaminophen 325 ms2 mg tablet (1 tabs)] {Co-Signature: [id number] (Dawna Estevez RN).} Route: PO; Addendum: 05/01/2016 13:27 Radiology Callback: Radiology results faxed to primary care physician/provider. dr alissa kwong faxed formal report of pelvic us for fu mlg. Signatures: Dispatcher [employer] Chantale Wharton MD MD ml Sobkiewicz, Michele, RN RN ms2 Hattie, Susannah, Reg Reg gb Sirisha Clark RN RN kr3 Rocio Sheldon Lisa, RN RN lf1 Alan Griffith PA PA mo1 Aniya Mcdermott, Reg Reg hs2 Dawna Estevez RN ms18 The chart was reviewed and I authenticate all verbal orders and agree with the evaluation and treatment provided.Corrections: (The following items were deleted from the chart) 04/25 20:17 20:07 URINALYSIS+LAB ordered. EDMS EDMS 21:00 20:07 AMYLASE+LAB ordered. EDMS EDMS 21:00 20:07 LIPASE+LAB ordered. EDMS EDMS 21:00 20:07 LIVER PROFILE+LAB ordered. EDMS EDMS Attachments: 20:18 [facility] Payment Agreement zo 04/26 02:28 T-Sheet-- Draft Copy hs2 MTDD
--- NOTE | 2016-05-01 13:28 | EDDOCDS ---
Physician Documentation [facility] Name: Abbie Mojica Age: 40 yrs Sex: Female : 1975 Arrival Date: 04/25/2016 Time: 18:02 Bed I4 / M4 Private MD: Alverto Ibarra Disposition: 04/25/16 22:50 Discharged to Home/Self Care. Impression: Other ovarian cysts - right complex. - Condition is Stable. - Discharge Instructions: Ovarian Cyst. - Prescriptions for [place] 5- 325 mg Oral Tablet - take 1 tablet by ORAL route every 6 hours As needed MDD: 4 tabs; 20 tablet. ZOFRAN ODT 4 mg - dissolve 1 tablet by ORAL route 4 times per day As needed do not chew, do not swallow whole; 10 tablet. - Medication Reconciliation, Local Pharmacy Hours form. - Follow up: Luis Kwong MD; When: Call to arrange an appointment; Reason: Recheck today's complaints, Continuance of care. - Problem is new. - Symptoms are unchanged. Historical: - Allergies: SULFA (SULFONAMIDES) (Rash); Latex (Hives, Rash); - Home Meds: 1. Humalog 100 unit/mL Sub-Q soln 10 units (Last dose: 04/25/2016 12:45) 2. levemir 75 units per day (Last dose: 04/24/2016 22:00) 3. metformin 1,000 mg Oral tab 1 tab 2 times per day (Last dose: 04/25/2016 12:45) 4. fenofibrate 160 mg oral tab 1 tab once daily (Last dose: 04/24/2016 21:00) 5. atorvastatin 80 mg oral tab 1 tab once daily (Last dose: 04/24/2016 21:00) 6. topiramate 50 mg oral cp24 1 cap once daily (Last dose: 04/25/2016 09:00) 7. topiramate 100 mg oral CSpX 1 cap once daily (Last dose: 04/24/2016 21:00) 8. gabapentin 600 mg Oral Tb24 twice daily (Last dose: 04/25/2016 09:00) 9. citalopram 10 mg Oral tab 1 tab once daily 10. Vitamin D Oral 50,000 unit weekly 11. Lisinopril Oral .25 mg (pt is unsure of dosage) - PMHx: Diabetes - IDDM: controlled; High Cholesterol; Migraines; Anxiety; - PSHx: ; D & C; Carpal Tunnel Repair- Left; Carpal Tunnel Repair- Right; Tonsillectomy; - Social history: Smoking status: Patient states was never smoker of tobacco. No barriers to communication noted, The patient speaks fluent Latvian, Speaks appropriately for age, Preferred Language: Latvian. - Family history: Not pertinent. - : The pt / caregiver states he / she is not on anticoagulants. Home medication list is obtained from the patient. 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 8 in. (142.24 cm) (R); 19:27 BP 121 / 76; Pulse 124; Resp 18; Pulse Ox 98% on R/A; Pain 8/10; lf1 20:54 BP 127 / 70; Pulse 110; Resp 20 S; Pulse Ox 96% on R/A; Pain 7/10; ms2 21:31 BP 112 / 67; Pulse 101; Resp 20 S; Pulse Ox 99% on R/A; ms2 23:00 BP 107 / 67; Pulse 103; Resp 20 S; Temp 99.6(O); Pulse Ox 96% on R/A; ms2 18:04 Body Mass Index 43.05 (87.09 kg, 142.24 cm) dd6 MDM: 18:35 If pre-RCE wait time >60 minutes, inform reg. staff to do full reg ordered. kr3 18:35 If pt is female >10yo <50yo order UCG ordered. kr3 18:35 Undress patient appropriately for examination ordered. kr3 18:36 BMP Ordered. EDMS 18:36 CBC with Diff Ordered. EDMS 18:36 HCG,Serum Qualitative Ordered. EDMS 18:36 UA Ordered. EDMS 18:36 NOTHING BY MOUTH+DIET ordered. EDMS 20:06 Financial registration complete. zo 20:07 NS 0.9% 1000 ml IV at bolus once ordered. mo1 20:07 Ondansetron 4 mg IVP once ordered. mo1 20:07 IV Saline Lock ordered. mo1 20:07 CT ABD & PELVIS: IV Contrast Only Ordered. EDMS 20:08 NOTHING BY MOUTH+DIET ordered. EDMS 20:14 UA Reviewed. mo1 20:14 CBC with Diff Reviewed. mo1 20:15 BMP Reviewed. mo1 20:15 HCG,Serum Qualitative Reviewed. mo1 20:18 [place] [place] was scanned into [employer]! and attached to record. zo 20:28 morphine 4 mg IVP once ordered. mo1 21:21 -US Pelvic Non-Ob Complete Ordered. EDMS 21:21 DUPLEX SCAN LIMITED (DOPPLER)+US Ordered. EDMS 21:23 ketorolac 30 mg IVP once ordered. mo1 21:34 LIVER PROFILE Reviewed. mo1 21:34 BMP Reviewed. mo1 21:34 AMYLASE Reviewed. mo1 21:38 HCG,Serum Qualitative Reviewed. mo1 21:39 CT ABD & PELVIS: IV Contrast Only Reviewed. mo1 21:44 LIPASE Reviewed. mo1 22:19 LIVER PROFILE Reviewed. mo1 22:19 LIPASE Reviewed. mo1 22:19 AMYLASE Reviewed. mo1 22:20 BMP Reviewed. mo1 22:20 HCG,Serum Qualitative Reviewed. mo1 22:26 Transvaginal NON- US Ordered. EDMS 22:49 HYDROcodone-acetaminophen 4 pack- 5 mg-325 mg 1 packets PO Per package directions; mo1 Dispense with patient. 1 po q4h prn for pain ordered. 04/26 02:28 T-Sheet-- Draft Copy was scanned into [employer]! and attached to record. hs2 11:03 Radiology Report was scanned into [employer]! and attached to record. gb Administered Medications: 04/25 04:00 Drug: morphine 4 mg [morphine 4 mg/mL intravenous cartridge (1 mL)] Route: IVP; Site: ms2 right antecubital; 20:54 Follow up: BP 127 / 70; Pulse 110 bpm; Resp 20 bpm Spontaneous; Pulse Ox 96% RA; Pain ms2 10/09 Adult; down from a 11/09 20:27 Drug: NS 0.9% 1000 ml [sodium chloride 0.9 % intravenous solution] Route: IV; Rate: ms2 bolus; Site: right antecubital; 20:27 Drug: Ondansetron 4 mg Route: IVP; Site: right antecubital; ms2 21:27 Drug: ketorolac 30 mg [ketorolac 30 mg/mL (1 mL) injection solution (1 mL)] Route: IVP; ms2 Site: right antecubital; 21:31 Follow up: BP 112 / 67; Pulse 101 bpm; Resp 20 bpm Spontaneous; Pulse Ox 99% RA ms2 23:01 Drug: HYDROcodone-acetaminophen 4 pack- 1 packets [hydrocodone 5 mg-acetaminophen 325 ms2 mg tablet (1 tabs)] {Co-Signature: [id number] (Dawna Estevez RN).} Route: PO; Addendum: 05/01/2016 13:27 Radiology Callback: Radiology results faxed to primary care physician/provider. dr alissa kwong faxed formal report of pelvic us for fu mlg. Signatures: Dispatcher [employer] Chantale Wharton MD MD ml Sobkiewicz, Michele, RN RN ms2 Hattie, Susannah, Reg Reg gb Sirisha Clark RN RN kr3 Rocio Sheldon Lisa, RN RN lf1 Alan Griffith PA PA mo1 Aniya Mcdermott, Reg Reg hs2 Dawna Estevez RN ms18 The chart was reviewed and I authenticate all verbal orders and agree with the evaluation and treatment provided.Corrections: (The following items were deleted from the chart) 04/25 20:17 20:07 URINALYSIS+LAB ordered. EDMS EDMS 21:00 20:07 AMYLASE+LAB ordered. EDMS EDMS 21:00 20:07 LIPASE+LAB ordered. EDMS EDMS 21:00 20:07 LIVER PROFILE+LAB ordered. EDMS EDMS Attachments: 20:18 [facility] Agreement zo 04/26 02:28 T-Sheet-- Draft Copy hs2 MTDD
--- NOTE | 2016-05-01 13:29 | EDDOCDS ---
Physician Documentation [facility] Name: Abbie Mojica Age: 40 yrs Sex: Female : 1975 Arrival Date: 04/25/2016 Time: 18:02 Bed I4 / M4 Private MD: Alverto Ibarra Disposition: 04/25/16 22:50 Discharged to Home/Self Care. Impression: Other ovarian cysts - right complex. - Condition is Stable. - Discharge Instructions: Ovarian Cyst. - Prescriptions for [place] 5- 325 mg Oral Tablet - take 1 tablet by ORAL route every 6 hours As needed MDD: 4 tabs; 20 tablet. ZOFRAN ODT 4 mg - dissolve 1 tablet by ORAL route 4 times per day As needed do not chew, do not swallow whole; 10 tablet. - Medication Reconciliation, Local Pharmacy Hours form. - Follow up: Luis Kwong MD; When: Call to arrange an appointment; Reason: Recheck today's complaints, Continuance of care. - Problem is new. - Symptoms are unchanged. Historical: - Allergies: SULFA (SULFONAMIDES) (Rash); Latex (Hives, Rash); - Home Meds: 1. Humalog 100 unit/mL Sub-Q soln 10 units (Last dose: 04/25/2016 12:45) 2. levemir 75 units per day (Last dose: 04/24/2016 22:00) 3. metformin 1,000 mg Oral tab 1 tab 2 times per day (Last dose: 04/25/2016 12:45) 4. fenofibrate 160 mg oral tab 1 tab once daily (Last dose: 04/24/2016 21:00) 5. atorvastatin 80 mg oral tab 1 tab once daily (Last dose: 04/24/2016 21:00) 6. topiramate 50 mg oral cp24 1 cap once daily (Last dose: 04/25/2016 09:00) 7. topiramate 100 mg oral CSpX 1 cap once daily (Last dose: 04/24/2016 21:00) 8. gabapentin 600 mg Oral Tb24 twice daily (Last dose: 04/25/2016 09:00) 9. citalopram 10 mg Oral tab 1 tab once daily 10. Vitamin D Oral 50,000 unit weekly 11. Lisinopril Oral .25 mg (pt is unsure of dosage) - PMHx: Diabetes - IDDM: controlled; High Cholesterol; Migraines; Anxiety; - PSHx: ; D & C; Carpal Tunnel Repair- Left; Carpal Tunnel Repair- Right; Tonsillectomy; - Social history: Smoking status: Patient states was never smoker of tobacco. No barriers to communication noted, The patient speaks fluent Micronesian, Speaks appropriately for age, Preferred Language: Micronesian. - Family history: Not pertinent. - : The pt / caregiver states he / she is not on anticoagulants. Home medication list is obtained from the patient. 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 8 in. (142.24 cm) (R); 19:27 BP 121 / 76; Pulse 124; Resp 18; Pulse Ox 98% on R/A; Pain 8/10; lf1 20:54 BP 127 / 70; Pulse 110; Resp 20 S; Pulse Ox 96% on R/A; Pain 7/10; ms2 21:31 BP 112 / 67; Pulse 101; Resp 20 S; Pulse Ox 99% on R/A; ms2 23:00 BP 107 / 67; Pulse 103; Resp 20 S; Temp 99.6(O); Pulse Ox 96% on R/A; ms2 18:04 Body Mass Index 43.05 (87.09 kg, 142.24 cm) dd6 MDM: 18:35 If pre-RCE wait time >60 minutes, inform reg. staff to do full reg ordered. kr3 18:35 If pt is female >10yo <50yo order UCG ordered. kr3 18:35 Undress patient appropriately for examination ordered. kr3 18:36 BMP Ordered. EDMS 18:36 CBC with Diff Ordered. EDMS 18:36 HCG,Serum Qualitative Ordered. EDMS 18:36 UA Ordered. EDMS 18:36 NOTHING BY MOUTH+DIET ordered. EDMS 20:06 Financial registration complete. zo 20:07 NS 0.9% 1000 ml IV at bolus once ordered. mo1 20:07 Ondansetron 4 mg IVP once ordered. mo1 20:07 IV Saline Lock ordered. mo1 20:07 CT ABD & PELVIS: IV Contrast Only Ordered. EDMS 20:08 NOTHING BY MOUTH+DIET ordered. EDMS 20:14 UA Reviewed. mo1 20:14 CBC with Diff Reviewed. mo1 20:15 BMP Reviewed. mo1 20:15 HCG,Serum Qualitative Reviewed. mo1 20:18 [facility] Payment Agreement was scanned into [employer] and attached to record. zo 20:28 morphine 4 mg IVP once ordered. mo1 21:21 -US Pelvic Non-Ob Complete Ordered. EDMS 21:21 DUPLEX SCAN LIMITED (DOPPLER)+US Ordered. EDMS 21:23 ketorolac 30 mg IVP once ordered. mo1 21:34 LIVER PROFILE Reviewed. mo1 21:34 BMP Reviewed. mo1 21:34 AMYLASE Reviewed. mo1 21:38 HCG,Serum Qualitative Reviewed. mo1 21:39 CT ABD & PELVIS: IV Contrast Only Reviewed. mo1 21:44 LIPASE Reviewed. mo1 22:19 LIVER PROFILE Reviewed. mo1 22:19 LIPASE Reviewed. mo1 22:19 AMYLASE Reviewed. mo1 22:20 BMP Reviewed. mo1 22:20 HCG,Serum Qualitative Reviewed. mo1 22:26 Transvaginal NON- US Ordered. EDMS 22:49 HYDROcodone-acetaminophen 4 pack- 5 mg-325 mg 1 packets PO Per package directions; mo1 Dispense with patient. 1 po q4h prn for pain ordered. 04/26 02:28 T-Sheet-- Draft Copy was scanned into [employer] and attached to record. hs2 11:03 Radiology Report was scanned into [employer] and attached to record. gb Administered Medications: 04/25 04:00 Drug: morphine 4 mg [morphine 4 mg/mL intravenous cartridge (1 mL)] Route: IVP; Site: ms2 right antecubital; 20:54 Follow up: BP 127 / 70; Pulse 110 bpm; Resp 20 bpm Spontaneous; Pulse Ox 96% RA; Pain ms2 10/09 Adult; down from a 11/09 20:27 Drug: NS 0.9% 1000 ml [sodium chloride 0.9 % intravenous solution] Route: IV; Rate: ms2 bolus; Site: right antecubital; 20:27 Drug: Ondansetron 4 mg Route: IVP; Site: right antecubital; ms2 21:27 Drug: ketorolac 30 mg [ketorolac 30 mg/mL (1 mL) injection solution (1 mL)] Route: IVP; ms2 Site: right antecubital; 21:31 Follow up: BP 112 / 67; Pulse 101 bpm; Resp 20 bpm Spontaneous; Pulse Ox 99% RA ms2 23:01 Drug: HYDROcodone-acetaminophen 4 pack- 1 packets [hydrocodone 5 mg-acetaminophen 325 ms2 mg tablet (1 tabs)] {Co-Signature: [id number] (Dawna Estevez RN).} Route: PO; Addendum: 05/01/2016 13:27 Radiology Callback: Radiology results faxed to primary care physician/provider. dr alissa kwong faxed formal report of pelvic us for fu mlg. Signatures: Dispatcher [employer] Chantale Wharton MD MD ml Sobkiewicz, Michele, RN RN ms2 Hattie, Susannah, Reg Reg gb Sirisha Clark RN RN kr3 Rocio Sheldon Lisa, RN RN lf1 Alan Griffith PA PA mo1 Aniya Mcdermott, Reg Reg hs2 Dawna Estevez RN [id number] The chart was reviewed and I authenticate all verbal orders and agree with the evaluation and treatment provided.Corrections: (The following items were deleted from the chart) 04/25 20:17 20:07 URINALYSIS+LAB ordered. EDMS EDMS 21:00 20:07 AMYLASE+LAB ordered. EDMS EDMS 21:00 20:07 LIPASE+LAB ordered. EDMS EDMS 21:00 20:07 LIVER PROFILE+LAB ordered. EDMS EDMS Attachments: 20:18 [facility] Payment Agreement zo 04/26 02:28 T-Sheet-- Draft Copy hs2 Chart Complete MTDD
--- NOTE | 2016-05-01 13:29 | EDDOCDS ---
Physician Documentation [facility] Name: Abbie Mojica Age: 40 yrs Sex: Female : 1975 Arrival Date: 04/25/2016 Time: 18:02 Bed I4 / M4 Private MD: Alverto Ibarra Disposition: 04/25/16 22:50 Discharged to Home/Self Care. Impression: Other ovarian cysts - right complex. - Condition is Stable. - Discharge Instructions: Ovarian Cyst. - Prescriptions for [place] 5- 325 mg Oral Tablet - take 1 tablet by ORAL route every 6 hours As needed MDD: 4 tabs; 20 tablet. ZOFRAN ODT 4 mg - dissolve 1 tablet by ORAL route 4 times per day As needed do not chew, do not swallow whole; 10 tablet. - Medication Reconciliation, Local Pharmacy Hours form. - Follow up: Luis Kwong MD; When: Call to arrange an appointment; Reason: Recheck today's complaints, Continuance of care. - Problem is new. - Symptoms are unchanged. Historical: - Allergies: SULFA (SULFONAMIDES) (Rash); Latex (Hives, Rash); - Home Meds: 1. Humalog 100 unit/mL Sub-Q soln 10 units (Last dose: 04/25/2016 12:45) 2. levemir 75 units per day (Last dose: 04/24/2016 22:00) 3. metformin 1,000 mg Oral tab 1 tab 2 times per day (Last dose: 04/25/2016 12:45) 4. fenofibrate 160 mg oral tab 1 tab once daily (Last dose: 04/24/2016 21:00) 5. atorvastatin 80 mg oral tab 1 tab once daily (Last dose: 04/24/2016 21:00) 6. topiramate 50 mg oral cp24 1 cap once daily (Last dose: 04/25/2016 09:00) 7. topiramate 100 mg oral CSpX 1 cap once daily (Last dose: 04/24/2016 21:00) 8. gabapentin 600 mg Oral Tb24 twice daily (Last dose: 04/25/2016 09:00) 9. citalopram 10 mg Oral tab 1 tab once daily 10. Vitamin D Oral 50,000 unit weekly 11. Lisinopril Oral .25 mg (pt is unsure of dosage) - PMHx: Diabetes - IDDM: controlled; High Cholesterol; Migraines; Anxiety; - PSHx: ; D & C; Carpal Tunnel Repair- Left; Carpal Tunnel Repair- Right; Tonsillectomy; - Social history: Smoking status: Patient states was never smoker of tobacco. No barriers to communication noted, The patient speaks fluent Macanese, Speaks appropriately for age, Preferred Language: Macanese. - Family history: Not pertinent. - : The pt / caregiver states he / she is not on anticoagulants. Home medication list is obtained from the patient. 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 8 in. (142.24 cm) (R); 19:27 BP 121 / 76; Pulse 124; Resp 18; Pulse Ox 98% on R/A; Pain 8/10; lf1 20:54 BP 127 / 70; Pulse 110; Resp 20 S; Pulse Ox 96% on R/A; Pain 7/10; ms2 21:31 BP 112 / 67; Pulse 101; Resp 20 S; Pulse Ox 99% on R/A; ms2 23:00 BP 107 / 67; Pulse 103; Resp 20 S; Temp 99.6(O); Pulse Ox 96% on R/A; ms2 18:04 Body Mass Index 43.05 (87.09 kg, 142.24 cm) dd6 MDM: 18:35 If pre-RCE wait time >60 minutes, inform reg. staff to do full reg ordered. kr3 18:35 If pt is female >10yo <50yo order UCG ordered. kr3 18:35 Undress patient appropriately for examination ordered. kr3 18:36 BMP Ordered. EDMS 18:36 CBC with Diff Ordered. EDMS 18:36 HCG,Serum Qualitative Ordered. EDMS 18:36 UA Ordered. EDMS 18:36 NOTHING BY MOUTH+DIET ordered. EDMS 20:06 Financial registration complete. zo 20:07 NS 0.9% 1000 ml IV at bolus once ordered. mo1 20:07 Ondansetron 4 mg IVP once ordered. mo1 20:07 IV Saline Lock ordered. mo1 20:07 CT ABD & PELVIS: IV Contrast Only Ordered. EDMS 20:08 NOTHING BY MOUTH+DIET ordered. EDMS 20:14 UA Reviewed. mo1 20:14 CBC with Diff Reviewed. mo1 20:15 BMP Reviewed. mo1 20:15 HCG,Serum Qualitative Reviewed. mo1 20:18 [facility] Payment Agreement was scanned into [employer] and attached to record. zo 20:28 morphine 4 mg IVP once ordered. mo1 21:21 -US Pelvic Non-Ob Complete Ordered. EDMS 21:21 DUPLEX SCAN LIMITED (DOPPLER)+US Ordered. EDMS 21:23 ketorolac 30 mg IVP once ordered. mo1 21:34 LIVER PROFILE Reviewed. mo1 21:34 BMP Reviewed. mo1 21:34 AMYLASE Reviewed. mo1 21:38 HCG,Serum Qualitative Reviewed. mo1 21:39 CT ABD & PELVIS: IV Contrast Only Reviewed. mo1 21:44 LIPASE Reviewed. mo1 22:19 LIVER PROFILE Reviewed. mo1 22:19 LIPASE Reviewed. mo1 22:19 AMYLASE Reviewed. mo1 22:20 BMP Reviewed. mo1 22:20 HCG,Serum Qualitative Reviewed. mo1 22:26 Transvaginal NON- US Ordered. EDMS 22:49 HYDROcodone-acetaminophen 4 pack- 5 mg-325 mg 1 packets PO Per package directions; mo1 Dispense with patient. 1 po q4h prn for pain ordered. 04/26 02:28 T-Sheet-- Draft Copy was scanned into [employer] and attached to record. hs2 11:03 Radiology Report was scanned into [employer] and attached to record. gb Administered Medications: 04/25 04:00 Drug: morphine 4 mg [morphine 4 mg/mL intravenous cartridge (1 mL)] Route: IVP; Site: ms2 right antecubital; 20:54 Follow up: BP 127 / 70; Pulse 110 bpm; Resp 20 bpm Spontaneous; Pulse Ox 96% RA; Pain ms2 10/09 Adult; down from a 11/09 20:27 Drug: NS 0.9% 1000 ml [sodium chloride 0.9 % intravenous solution] Route: IV; Rate: ms2 bolus; Site: right antecubital; 20:27 Drug: Ondansetron 4 mg Route: IVP; Site: right antecubital; ms2 21:27 Drug: ketorolac 30 mg [ketorolac 30 mg/mL (1 mL) injection solution (1 mL)] Route: IVP; ms2 Site: right antecubital; 21:31 Follow up: BP 112 / 67; Pulse 101 bpm; Resp 20 bpm Spontaneous; Pulse Ox 99% RA ms2 23:01 Drug: HYDROcodone-acetaminophen 4 pack- 1 packets [hydrocodone 5 mg-acetaminophen 325 ms2 mg tablet (1 tabs)] {Co-Signature: [id number] (Dawna Estevez RN).} Route: PO; Addendum: 05/01/2016 13:27 Radiology Callback: Radiology results faxed to primary care physician/provider. dr alissa kwong faxed formal report of pelvic us for fu mlg. Signatures: Dispatcher [employer] Chantale Wharton MD MD ml Sobkiewicz, Michele, RN RN ms2 Hattie, Susannah, Reg Reg gb Sirisha Clark RN RN kr3 Rocio Sheldon Lisa, RN RN lf1 Alan Griffith PA PA mo1 Aniya Mcdermott, Reg Reg hs2 Dawna Estevez RN ms18 The chart was reviewed and I authenticate all verbal orders and agree with the evaluation and treatment provided.Corrections: (The following items were deleted from the chart) 04/25 20:17 20:07 URINALYSIS+LAB ordered. EDMS EDMS 21:00 20:07 AMYLASE+LAB ordered. EDMS EDMS 21:00 20:07 LIPASE+LAB ordered. EDMS EDMS 21:00 20:07 LIVER PROFILE+LAB ordered. EDMS EDMS Attachments: 20:18 REPLACED BY [facility] Payment Agreement zo 04/26 02:28 T-Sheet-- Draft Copy hs2 Chart Complete MTDD
--- NOTE | 2016-05-01 13:29 | EDDOCDS ---
Nurse's Notes [facility] Name: Abbie Mojica Age: 40 yrs Sex: Female : 1975 Arrival Date: 04/25/2016 Time: 18:02 Bed I4 / M4 Private MD: Alverto Ibarra Diagnosis: Other ovarian cysts-right complex Presentation: 04/25 18:21 Presenting complaint: Patient states: Lower abdominal pain that has been ongoing for 5 lf1 days and radiates to her back. Pt reports pain is currently 9/10 with nausea. Pt reports that her PCP is Dr. Ibarra at [facility]. Adult Sepsis Screening: The patient does not have new or worsening altered mentation. Patient's respiratory rate is less than 22. Systolic blood pressure is greater than 100. Patient has a qSOFA score of 0- Negative Sepsis Screen. Suicide/Homicide risk assessment- the patient denies having any suicidal and/or homicidal ideations and does not present with any other emotional, behavioral or mental health complaints. Status: Patient is not a director of therapy services or dependent. Transition of care: patient was not received from another setting of care. 18:21 Acuity: JIMMY Level 3 lf1 18:21 Method Of Arrival: Walkin/Carried/Asstd lf1 Triage Assessment: 18:30 General: Appears obese, Behavior is cooperative. Pain: Location: abdomen Pain currently lf1 is 8 out of 10 on a pain scale. HIV screening NA for this visit Offered previously. Neurological: Level of Consciousness is awake, alert. Respiratory: Respiratory effort is even, unlabored. GI: Abdomen is obese, Reports lower abdominal pain, nausea. Derm: Skin is normal. 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 Humalog 100 unit/mL Sub-Q soln 10 units (Last dose: 04/25/2016 12:45) 2. levemir 75 units per day (Last dose: 04/24/2016 22:00) 3. metformin 1,000 mg Oral tab 1 tab 2 times per day (Last dose: 04/25/2016 12:45) 4. fenofibrate 160 mg oral tab 1 tab once daily (Last dose: 04/24/2016 21:00) 5. atorvastatin 80 mg oral tab 1 tab once daily (Last dose: 04/24/2016 21:00) 6. topiramate 50 mg oral cp24 1 cap once daily (Last dose: 04/25/2016 09:00) 7. topiramate 100 mg oral CSpX 1 cap once daily (Last dose: 04/24/2016 21:00) 8. gabapentin 600 mg Oral Tb24 twice daily (Last dose: 04/25/2016 09:00) 9. citalopram 10 mg Oral tab 1 tab once daily 10. Vitamin D Oral 50,000 unit weekly 11. Lisinopril Oral .25 mg (pt is unsure of dosage) - PMHx: Diabetes - IDDM: controlled; High Cholesterol; Migraines; Anxiety; - PSHx: ; D & C; Carpal Tunnel Repair- Left; Carpal Tunnel Repair- Right; Tonsillectomy; - Social history: Smoking status: Patient states was never smoker of tobacco. No barriers to communication noted, The patient speaks fluent Barbadian, Speaks appropriately for age, Preferred Language: Barbadian. - Family history: Not pertinent. - : The pt / caregiver states he / she is not on anticoagulants. Home medication list is obtained from the patient. 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 Screenin:32 Screening information is obtained from the patient. Fall risk: No risks identified. lf1 Assistance ADL's: requires no assistance with activities of daily living. Abuse/DV Screen: The patient / caregiver reports he/she is: not in a situation that causes fear, pain or injury. Nutritional screening: On diabetic diet. Advance Directives: Currently, there is no health care proxy. There is no active DNR order. home support is adequate. Assessment: 19:27 Adult Sepsis Screening: The patient does not have new or worsening altered mentation. lf1 Patient's respiratory rate is less than 22. Systolic blood pressure is greater than 100. Patient has a qSOFA score of 0- Negative Sepsis Screen. General: Appears uncomfortable, Behavior is cooperative. Pain: Location: right lower quadrant and left lower quadrant Pain currently is 8 out of 10 on a pain scale. Quality of pain is described as sharp. Neurological: Level of Consciousness is awake, alert, Oriented to person, place. EENT: No deficits noted. Cardiovascular: Chest pain is denied. Respiratory: Respiratory effort is even, unlabored. GI: Abdomen is obese, Reports lower abdominal pain. : Denies burning with urination. Derm: No deficits noted. 20:28 General: Appears in no apparent distress. Pain: Location: left lower quadrant and right ms2 lower quadrant Pain currently is 8 out of 10 on a pain scale. Respiratory: No deficits noted. Derm: Skin is pink, warm & dry. Musculoskeletal: No deficits noted. 20:45 General: back from ct ---no reaction to iv contrast. Neurological: No deficits noted. ms2 Respiratory: Respiratory effort is even, unlabored. Derm: Skin is pink, warm & dry. 20:55 General: medicated for pain per order. Neurological: No deficits noted. Respiratory: ms2 Airway is patent Respiratory effort is even, unlabored, Respiratory pattern is regular, symmetrical. Derm: Skin is pink, warm & dry. 21:31 General: Appears in no apparent distress, medicated for pain. Pain: Pain currently is 7 ms2 out of 10 on a pain scale. Neurological: No deficits noted. Respiratory: Respiratory effort is even, unlabored. Derm: Skin is pink, warm & dry. Musculoskeletal: No deficits noted. 22:42 General: Appears in no apparent distress, Behavior is cooperative. Pain: Location: pt ms2 declines anything for pain presently Pain currently is 8 out of 10 on a pain scale. Neurological: Level of Consciousness is awake, alert, obeys commands. Respiratory: Respiratory effort is even, unlabored. GI: Abdomen is non- distended obese. Derm: Skin is pink, warm & dry. Musculoskeletal: Range of motion intact in all extremities. Vital Signs: 18:04 BP 135 / 89; Pulse 130; Resp 18 S; Temp 99.8(O); Pulse Ox 99% on R/A; Weight 87.09 kg dd6 (R); Height 4 ft. 8 in. (142.24 cm) (R); 19:27 BP 121 / 76; Pulse 124; Resp 18; Pulse Ox 98% on R/A; Pain 8/10; lf1 20:54 BP 127 / 70; Pulse 110; Resp 20 S; Pulse Ox 96% on R/A; Pain 7/10; ms2 21:31 BP 112 / 67; Pulse 101; Resp 20 S; Pulse Ox 99% on R/A; ms2 23:00 BP 107 / 67; Pulse 103; Resp 20 S; Temp 99.6(O); Pulse Ox 96% on R/A; ms2 18:04 Body Mass Index 43.05 (87.09 kg, 142.24 cm) dd6 Vitals: 18:04 Log In Time: April 25, 2016 at 18:02. dd6 ED Course: 18:03 Patient visited by Guerrero aPl PCA. dd6 18:03 Patient moved to Waiting dd6 18:04 Alvetro Ibarra is Private Physician. dd6 18:05 Patient moved to Pre RCE dd6 18:23 Triage Initiated lf1 18:35 Patient moved to PR1 / 25 mdr 18:48 Patient moved to Pre RCE mdr 18:48 BMP Sent. mdr 18:48 CBC with Diff Sent. mdr 18:48 HCG,Serum Qualitative Sent. mdr 18:48 UA Sent. mdr 19:25 Patient moved to Triage 1 lf1 19:29 Patient visited by Zulema Capellan RN. lf1 19:33 Alan Griffith PA is PHCP. mo1 19:33 Beto Perez MD is Attending Physician. mo1 19:49 Patient visited by Alan Griffith PA. mo1 19:54 Patient moved to I4 / M4 mdr 20:18 [facility] Payment Agreement was scanned into myeasydocs and attached to record. zo 20:28 The patient / caregiver is instructed regarding the plan of care and ED course. ms2 20:28 Inserted peripheral IV: 20gauge IV in right hand Patient tolerated the procedure well. ms2 No procedures done that require assistance. 20:53 Patient visited by Kamlesh Browning RN. ms2 20:54 The patient / caregiver is instructed regarding the plan of care and ED course. ms2 20:54 IV is patent, is intact, is free of redness or swelling. solution is infusing as ms2 ordered. 20:56 The patient / caregiver is instructed regarding the plan of care and ED course. ms2 21:22 CT ABD & PELVIS: IV Contrast Only Returned. EDMS 21:24 Patient visited by Kamlesh Browning RN. ms2 21:32 The patient / caregiver is instructed regarding the plan of care and ED course. ms2 21:32 IV is patent, is intact, is free of redness or swelling. solution is infusing as ms2 ordered. 22:00 Patient moved to Ultrasound dmg 22:22 Patient moved to I4 / M4 dmg 22:42 Patient visited by Kamlesh Browning RN. ms2 22:43 The patient / caregiver is instructed regarding the plan of care and ED course. ms2 22:43 Discontinued lock intact, bleeding controlled, pressure dressing applied, No ms2 redness/swelling at site. SL clotted--ok to remove per PA. 22:50 Luis Wilcox MD is Referral Physician. mo1 23:02 The patient / caregiver is instructed regarding the plan of care and ED course. ms2 23:24 -US Pelvic Non-Ob Complete Returned. EDMS 04/26 02:28 T-Sheet-- Draft Copy was scanned into myeasydocs and attached to record. hs2 11:03 Radiology Report was scanned into myeasydocs and attached to record. gb Administered Medications: 04/25 04:00 Drug: morphine 4 mg [morphine 4 mg/mL intravenous cartridge (1 mL)] Route: IVP; Site: ms2 right antecubital; 20:54 Follow up: BP 127 / 70; Pulse 110 bpm; Resp 20 bpm Spontaneous; Pulse Ox 96% RA; Pain ms2 10/09 Adult; down from a 810 20:27 Drug: NS 0.9% 1000 ml [sodium chloride 0.9 % intravenous solution] Route: IV; Rate: ms2 bolus; Site: right antecubital; 20:27 Drug: Ondansetron 4 mg Route: IVP; Site: right antecubital; ms2 21:27 Drug: ketorolac 30 mg [ketorolac 30 mg/mL (1 mL) injection solution (1 mL)] Route: IVP; ms2 Site: right antecubital; 21:31 Follow up: BP 112 / 67; Pulse 101 bpm; Resp 20 bpm Spontaneous; Pulse Ox 99% RA ms2 23:01 Drug: HYDROcodone-acetaminophen 4 pack- 1 packets [hydrocodone 5 mg-acetaminophen 325 ms2 mg tablet (1 tabs)] {Co-Signature: ms18 (Dawna Estevez RN).} Route: PO; Intake: 22:44 PO: 0.00ml; IV: 1000.00ml (NS); Total: 1000.00ml. ms2 22:44 voided x1 in ed ms2 Order Results: Lab Order: BMP; SPEC'M 04/25/16 18:44 Test: GLUCOSE, FASTING; Value: 160; Range: 70-105; Abnormal: Above high normal; Units: MG/DL; Status: F Test: BLOOD UREA NITROGEN; Value: 11; Range: 7-18; Units: MG/DL; Status: F Test: CREATININE FOR GFR; Value: 1.02; Range: 0.55-1.02; Units: MG/DL; Status: F Test: SODIUM LEVEL; Range: 136-145; Units: MEQ/L; Status: I Test: POTASSIUM SERUM; Range: 3.5-5.1; Units: MEQ/L; Status: I Test: CHLORIDE LEVEL; Range: 98-107; Units: MEQ/L; Status: I Test: CARBON DIOXIDE LEVEL; Range: 21-32; Units: MEQ/L; Status: I Test: ANION GAP; Range: 8-16; Units: MEQ/L; Status: I Test: CALCIUM LEVEL; Range: 8.5-10.1; Units: MG/DL; Status: I Test: GLOMERULAR FILTRATION RATE; Value: > 60.0; Range: >60; Status: F Test: SODIUM LEVEL; Value: 140; Range: 136-145; Units: MEQ/L; Status: F Test: POTASSIUM SERUM; Value: 3.7; Range: 3.5-5.1; Units: MEQ/L; Status: F Test: CHLORIDE LEVEL; Value: 105; Range: 98-107; Units: MEQ/L; Status: F Test: CARBON DIOXIDE LEVEL; Value: 23; Range: 21-32; Units: MEQ/L; Status: F Test: ANION GAP; Value: 12; Range: 8-16; Units: MEQ/L; Status: F Test: CALCIUM LEVEL; Value: 9.4; Range: 8.5-10.1; Units: MG/DL; Status: F Test Note: ; Units are mL/min/1.73 m2 Chronic Kidney Disease Staging per NKF: Stage I & II GFR >=60 Normal to Mildly Decreased Stage III GFR 30-59 Moderately Decreased Stage IV GFR 15-29 Severely Decreased Stage V GFR <15 Very Little GFR Left ESRD GFR <15 on VP SECURITY Lab Order: CBC with Diff; SPEC'M 04/25/16 18:44 Test: WHITE BLOOD COUNT; Value: 14.3; Range: 4.0-10.0; Abnormal: Above high normal; Units: K/mm3; Status: F Test: RED BLOOD COUNT; Value: 4.53; Range: 4.00-5.40; Units: M/mm3; Status: F Test: HEMOGLOBIN; Value: 13.2; Range: 12.0-16.0; Units: g/dl; Status: F Test: HEMATOCRIT; Value: 41.1; Range: 36.0-47.0; Units: %; Status: F Test: MEAN CORPUSCULAR VOLUME; Value: 90.8; Range: 80.0-96.0; Units: fl; Status: F Test: MEAN CORPUSCULAR HEMOGLOBIN; Value: 29.1; Range: 27.0-33.0; Units: pg; Status: F Test: MEAN CORPUSCULAR HGB CONC; Value: 32.0; Range: 32.0-36.5; Units: g/dl; Status: F Test: RED CELL DISTRIBUTION WIDTH; Value: 14.2; Range: 11.5-14.5; Units: %; Status: F Test: PLATELET COUNT, AUTOMATED; Value: 506; Range: 150-450; Abnormal: Above high normal; Units: k/mm3; Status: F Test: NEUTROPHILS %; Value: 57.3; Range: 36.0-66.0; Units: %; Status: F Test: LYMPH %; Value: 30.3; Range: 24.0-44.0; Units: %; Status: F Test: MONO %; Value: 4.5; Range: 0.0-5.0; Units: %; Status: F Test: EOS %; Value: 4.1; Range: 0.0-3.0; Abnormal: Above high normal; Units: %; Status: F Test: BASO %; Value: 1.7; Range: 0.0-1.0; Abnormal: Above high normal; Units: %; Status: F Test: LARGE UNSTAINED CELL %; Value: 2.1; Range: 0.0-4.0; Units: %; Status: F Test: NEUTROPHILS #; Value: 8.2; Range: 1.8-7.7; Abnormal: Above high normal; Units: K/mm3; Status: F Test: LYMPH #; Value: 4.6; Range: 1.5-4.5; Abnormal: Above high normal; Units: K/mm3; Status: F Test: MONO #; Value: 0.6; Range: 0.0-0.8; Units: K/mm3; Status: F Test: EOS #; Value: 0.6; Range: 0.0-0.50; Abnormal: Above high normal; Units: K/mm3; Status: F Test: BASO #; Value: 0.2; Range: 0.0-0.2; Units: K/mm3; Status: F Test: LARGE UNSTAINED CELL #; Value: 0.3; Range: 0.0-0.4; Units: K/mm3; Status: F Lab Order: HCG,Serum Qualitative; SPEC'M 04/25/16 18:44 Test: HCG, SERUM QUALITATIVE; Value: NEGATIVE; Range: NEGATIVE; Status: F Lab Order: UA; SPEC'M 04/25/16 18:44 Test: APPEARANCE, URINE; Value: CLOUDY; Range: CLEAR; Abnormal: Above high normal; Status: F Test: COLOR, URINE; Value: YELLOW; Range: YELLOW; Status: F Test: PH,URINE; Value: 5.0; Range: 5.0-9.0; Units: UNITS; Status: F Test: SPECIFIC GRAVITY URINE AUTO; Value: 1.023; Range: 1.002-1.035; Status: F Test: PROTEIN, URINE AUTO; Value: NEGATIVE; Range: NEGATIVE; Units: mg/dL; Status: F Test: GLUCOSE, URINE (UA) AUTO; Value: NEGATIVE; Range: NEGATIVE; Units: mg/dL; Status: F Test: KETONE, URINE AUTO; Value: NEGATIVE; Range: NEGATIVE; Units: mg/dL; Status: F Test: UROBILINOGEN, URINE AUTO; Value: 0.2; Range: 0.0-2.0; Units: mg/dL; Status: F Test: BILIRUBIN, URINE AUTO; Value: NEGATIVE; Range: NEGATIVE; Status: F Test: NITRITE, URINE AUTO; Value: NEGATIVE; Range: NEGATIVE; Status: F Test: LEUKOCYTE ESTERASE, URINE AUTO; Value: NEGATIVE; Range: NEGATIVE; Status: F Test: BLOOD, URINE BLOOD; Value: NEGATIVE; Range: NEGATIVE; Status: F Test: WBC, URINE AUTO; Value: 2; Range: 0-3; Units: /HPF; Status: F Test: RBC, URINE AUTO; Value: 3; Range: 0-3; Units: /HPF; Status: F Test: BACTERIA, URINE AUTO; Value: 1+; Range: NEGATIVE; Abnormal: Above high normal; Status: F Test: SQUAMOUS EPITHELIAL CELL UR AU; Value: 21; Range: 0-6; Units: /HPF; Status: F Test: MUCUS, URINE; Value: SMALL; Range: NEGATIVE; Status: F Test: HYALINE CAST, URINE AUTO; Value: 0; Range: 0-1; Units: /LPF; Status: F Test: CALCIUM OXALATE CRYSTALS; Value: LARGE; Range: NONE; Status: F Lab Order: LIVER PROFILE; SPEC'M 04/25/16 18:44 Test: AST/SGOT; Value: 13; Range: 15-37; Abnormal: Below low normal; Units: U/L; Status: F Test: ALT/SGPT; Value: 29; Range: 12-78; Units: U/L; Status: F Test: ALKALINE PHOSPHATASE; Value: 90; Range: 45-117; Units: U/L; Status: F Test: BILIRUBIN,TOTAL; Value: 0.3; Range: 0.2-1.0; Units: MG/DL; Status: F Test: BILIRUBIN,DIRECT; Value: 0.1; Range: 0.0-0.2; Units: MG/DL; Status: F Test: TOTAL PROTEIN; Value: 7.7; Range: 6.4-8.2; Units: GM/DL; Status: F Test: ALBUMIN; Value: 3.8; Range: 3.2-5.2; Units: GM/DL; Status: F Test: ALBUMIN/GLOBULIN RATIO; Value: 0.97; Range: 1.00-1.93; Abnormal: Below low normal; Status: F Lab Order: AMYLASE; SPEC'M 04/25/16 18:44 Test: AMYLASE; Value: 38; Range: 25-115; Units: U/L; Status: F Lab Order: LIPASE; SPEC'M 04/25/16 18:44 Test: LIPASE; Value: 114; Range: 73-393; Units: U/L; Status: F Radiology Order: CT ABD & PELVIS: IV Contrast Only Test: CT ABD & PELVIS: IV Contrast Only REASON FOR EXAMINATION: Diverticulitis; ; CT of the abdomen and pelvis with contrast; Clinical statement: Pain.; Technique: Multiple axial CT images were obtained from the base of the lungs through the floor of the; pelvis utilizing 5 mm axial slices after administration of nonionic intravenous contrast. Coronal an; d sagittal reconstructions were also obtained.; No comparison is available.; Findings:; Chest: The visualized lung bases are clear.; Abdomen: The liver, spleen, pancreas, kidneys, gallbladder, and adrenal glands are unremarkable. The; aorta is within normal limits. There is no evidence of abdominal lymphadenopathy or ascites.; Pelvis: The bowel is unremarkable, with no obstructive or inflammatory changes. The appendix is maria luisa; l. The urinary bladder is within normal limits. The other pelvic structures appear grossly intact. Th; ere is a large cystic lesion in the right ovary measuring 6.8 x 8.1 cm. There is no evidence of pelvi; c lymphadenopathy or ascites.; Bones: There are no suspicious osseous abnormalities seen.; Impression: Large simple cyst in the right ovary as described. Because of the large size of this lesi; on, a follow-up ultrasound in 6 to 12 weeks to evaluate for resolution of this cyst is recommended.; ; Radiology Order: -US Pelvic Non-Ob Complete Test: -US Pelvic Non-Ob Complete REASON FOR EXAMINATION: right ov cyst 6x8cm;Adnexal Pain r/o Torsion; ; Clinical history: Pain.; Comparison: CT, 04/25/2016.; Findings: Real-time transabdominal and transvaginal ultrasound images of the pelvis were obtained. An; anteverted uterus is noted, measuring 9.7 x 5.0 x 5.1 cm. The uterus demonstrates normal echotextur; e and echogenicity. The endometrial stripe measures 5 mm and is within normal limits. The right ovary; measures 8.2 x 6.5 x 9.0 cm. There is a right ovarian cystic lesion measuring 6.1 x 6.2 x 7.3 cm. Th; e left ovary was not clearly visualized. There is no evidence of free fluid.; Impression: Large right ovarian cyst, corresponding to the lesion seen on the prior CT study. Follow-; up in 6 to 12 weeks is recommended.; ; Outcome: 22:50 Discharge ordered by Provider. mo1 23:01 Discharge Assessment: patient administered narcotics - yes. Pt provided with safe ms2 discharge. The following High Risk Discharge criteria are identified: None. Discharged to home ambulatory, with significant other. Condition: stable. Discharge instructions given to patient, Instructed on discharge instructions, follow up and referral plans. medication usage, no driving heavy equipment, no drinking with medication, Demonstrated understanding of instructions, medications, Pt was receptive of discharge instructions/ teaching. Prescriptions given X [address] Study completed. Ultrasound Study completed. Property sent home with patient. 23:02 Patient left the ED. ms2 Signatures: Dispatcher [employer] EDMS Kamlesh Browning,RN RN ms2 Crystal Islas Gloria, Reg Reg gb Rocio Sheldon LisaRN RN lf1 Guerrero Pal, PUNCH PRESS FEEDER PUNCH PRESS FEEDER dd6 Alan Griffith PA PA mo1 Helio Christianson, PUNCH PRESS FEEDER PUNCH PRESS FEEDER mdr Aniya Mcdermott, Reg Reg hs2 Dawna Estevez RN ms18 Corrections: (The following items were deleted from the chart) 20:17 20:14 URINALYSIS+LAB sent. mo1 EDMS 21:00 20:11 AMYLASE+LAB sent. ms2 EDMS 21:00 20:11 LIPASE+LAB sent. ms2 EDMS 21:00 20:11 LIVER PROFILE+LAB sent. ms2 EDMS 22:44 22:42 Pain: Pain currently is 8 out of 10 on a pain scale. ms2 ms2 Chart Complete MTDD
--- NOTE | 2016-05-01 13:32 | EDDOCDS ---
Physician Documentation [facility] Name: Abbie Mojica Age: 40 yrs Sex: Female : 1975 Arrival Date: 04/25/2016 Time: 18:02 Bed I4 / M4 Private MD: Alverto Ibarra Disposition: 04/25/16 22:50 Discharged to Home/Self Care. Impression: Other ovarian cysts - right complex. - Condition is Stable. - Discharge Instructions: Ovarian Cyst. - Prescriptions for [place] 5- 325 mg Oral Tablet - take 1 tablet by ORAL route every 6 hours As needed MDD: 4 tabs; 20 tablet. ZOFRAN ODT 4 mg - dissolve 1 tablet by ORAL route 4 times per day As needed do not chew, do not swallow whole; 10 tablet. - Medication Reconciliation, Local Pharmacy Hours form. - Follow up: Luis Kwong MD; When: Call to arrange an appointment; Reason: Recheck today's complaints, Continuance of care. - Problem is new. - Symptoms are unchanged. Historical: - Allergies: SULFA (SULFONAMIDES) (Rash); Latex (Hives, Rash); - Home Meds: 1. Humalog 100 unit/mL Sub-Q soln 10 units (Last dose: 04/25/2016 12:45) 2. levemir 75 units per day (Last dose: 04/24/2016 22:00) 3. metformin 1,000 mg Oral tab 1 tab 2 times per day (Last dose: 04/25/2016 12:45) 4. fenofibrate 160 mg oral tab 1 tab once daily (Last dose: 04/24/2016 21:00) 5. atorvastatin 80 mg oral tab 1 tab once daily (Last dose: 04/24/2016 21:00) 6. topiramate 50 mg oral cp24 1 cap once daily (Last dose: 04/25/2016 09:00) 7. topiramate 100 mg oral CSpX 1 cap once daily (Last dose: 04/24/2016 21:00) 8. gabapentin 600 mg Oral Tb24 twice daily (Last dose: 04/25/2016 09:00) 9. citalopram 10 mg Oral tab 1 tab once daily 10. Vitamin D Oral 50,000 unit weekly 11. Lisinopril Oral .25 mg (pt is unsure of dosage) - PMHx: Diabetes - IDDM: controlled; High Cholesterol; Migraines; Anxiety; - PSHx: ; D & C; Carpal Tunnel Repair- Left; Carpal Tunnel Repair- Right; Tonsillectomy; - Social history: Smoking status: Patient states was never smoker of tobacco. No barriers to communication noted, The patient speaks fluent [place], Speaks appropriately for age, Preferred Language: [place]. - Family history: Not pertinent. - : The pt / caregiver states he / she is not on anticoagulants. Home medication list is obtained from the patient. 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 8 in. (142.24 cm) (R); 19:27 BP 121 / 76; Pulse 124; Resp 18; Pulse Ox 98% on R/A; Pain 8/10; lf1 20:54 BP 127 / 70; Pulse 110; Resp 20 S; Pulse Ox 96% on R/A; Pain 7/10; ms2 21:31 BP 112 / 67; Pulse 101; Resp 20 S; Pulse Ox 99% on R/A; ms2 23:00 BP 107 / 67; Pulse 103; Resp 20 S; Temp 99.6(O); Pulse Ox 96% on R/A; ms2 18:04 Body Mass Index 43.05 (87.09 kg, 142.24 cm) dd6 MDM: 18:35 If pre-RCE wait time >60 minutes, inform reg. staff to do full reg ordered. kr3 18:35 If pt is female >10yo <50yo order UCG ordered. kr3 18:35 Undress patient appropriately for examination ordered. kr3 18:36 BMP Ordered. EDMS 18:36 CBC with Diff Ordered. EDMS 18:36 HCG,Serum Qualitative Ordered. EDMS 18:36 UA Ordered. EDMS 18:36 NOTHING BY MOUTH+DIET ordered. EDMS 20:06 Financial registration complete. zo 20:07 NS 0.9% 1000 ml IV at bolus once ordered. mo1 20:07 Ondansetron 4 mg IVP once ordered. mo1 20:07 IV Saline Lock ordered. mo1 20:07 CT ABD & PELVIS: IV Contrast Only Ordered. EDMS 20:08 NOTHING BY MOUTH+DIET ordered. EDMS 20:14 UA Reviewed. mo1 20:14 CBC with Diff Reviewed. mo1 20:15 BMP Reviewed. mo1 20:15 HCG,Serum Qualitative Reviewed. mo1 20:18 [facility] [place] Payment Agreement was scanned into [employer] and attached to record. zo 20:28 morphine 4 mg IVP once ordered. mo1 21:21 -US Pelvic Non-Ob Complete Ordered. EDMS 21:21 DUPLEX SCAN LIMITED (DOPPLER)+US Ordered. EDMS 21:23 ketorolac 30 mg IVP once ordered. mo1 21:34 LIVER PROFILE Reviewed. mo1 21:34 BMP Reviewed. mo1 21:34 AMYLASE Reviewed. mo1 21:38 HCG,Serum Qualitative Reviewed. mo1 21:39 CT ABD & PELVIS: IV Contrast Only Reviewed. mo1 21:44 LIPASE Reviewed. mo1 22:19 LIVER PROFILE Reviewed. mo1 22:19 LIPASE Reviewed. mo1 22:19 AMYLASE Reviewed. mo1 22:20 BMP Reviewed. mo1 22:20 HCG,Serum Qualitative Reviewed. mo1 22:26 Transvaginal NON- US Ordered. EDMS 22:49 HYDROcodone-acetaminophen 4 pack- 5 mg-325 mg 1 packets PO Per package directions; mo1 Dispense with patient. 1 po q4h prn for pain ordered. 04/26 02:28 T-Sheet-- Draft Copy was scanned into [employer] and attached to record. hs2 11:03 Radiology Report was scanned into [employer] and attached to record. gb Administered Medications: 04/25 04:00 Drug: morphine 4 mg [morphine 4 mg/mL intravenous cartridge (1 mL)] Route: IVP; Site: ms2 right antecubital; 20:54 Follow up: BP 127 / 70; Pulse 110 bpm; Resp 20 bpm Spontaneous; Pulse Ox 96% RA; Pain ms2 10/09 Adult; down from a 11/09 20:27 Drug: NS 0.9% 1000 ml [sodium chloride 0.9 % intravenous solution] Route: IV; Rate: ms2 bolus; Site: right antecubital; 20:27 Drug: Ondansetron 4 mg Route: IVP; Site: right antecubital; ms2 21:27 Drug: ketorolac 30 mg [ketorolac 30 mg/mL (1 mL) injection solution (1 mL)] Route: IVP; ms2 Site: right antecubital; 21:31 Follow up: BP 112 / 67; Pulse 101 bpm; Resp 20 bpm Spontaneous; Pulse Ox 99% RA ms2 23:01 Drug: HYDROcodone-acetaminophen 4 pack- 1 packets [hydrocodone 5 mg-acetaminophen 325 ms2 mg tablet (1 tabs)] {Co-Signature: [id number] (Dawna Estevez RN).} Route: PO; Addendum: 05/01/2016 13:27 Radiology Callback: Radiology results faxed to primary care physician/provider. dr alissa kwong faxed formal report of pelvic us for fu mlg. 13:31 Radiology Callback: dr kwong also faaxed ct abd/p report mlg. ml Signatures: Dispatcher [employer] Chantale Wharton MD MD ml Sobkiewicz, Michele,RN RN ms2 Susannah Kuhn, Reg Reg gb Sirisha Clark RN RN kr3 Rocio Sheldon LisaRN RN lf1 Alan Griffith PA PA mo1 Aniya Mcdermott, Reg Reg hs2 Dawna Estevez RN ms18 The chart was reviewed and I authenticate all verbal orders and agree with the evaluation and treatment provided.Corrections: (The following items were deleted from the chart) 04/25 20:17 20:07 URINALYSIS+LAB ordered. EDMS EDMS 21:00 20:07 AMYLASE+LAB ordered. EDMS EDMS 21:00 20:07 LIPASE+LAB ordered. EDMS EDMS 21:00 20:07 LIVER PROFILE+LAB ordered. EDMS EDMS Attachments: 20:18 [facility] Payment Agreement zo 04/26 02:28 T-Sheet-- Draft Copy hs2 MTDD
--- NOTE | 2016-05-01 13:32 | EDDOCDS ---
Physician Documentation [facility] Name: Abbie Mojica Age: 40 yrs Sex: Female : 1975 Arrival Date: 04/25/2016 Time: 18:02 Bed I4 / M4 Private MD: Alverto Ibarra Disposition: 04/25/16 22:50 Discharged to Home/Self Care. Impression: Other ovarian cysts - right complex. - Condition is Stable. - Discharge Instructions: Ovarian Cyst. - Prescriptions for [place] 5- 325 mg Oral Tablet - take 1 tablet by ORAL route every 6 hours As needed MDD: 4 tabs; 20 tablet. ZOFRAN ODT 4 mg - dissolve 1 tablet by ORAL route 4 times per day As needed do not chew, do not swallow whole; 10 tablet. - Medication Reconciliation, Local Pharmacy Hours form. - Follow up: Luis Kwong MD; When: Call to arrange an appointment; Reason: Recheck today's complaints, Continuance of care. - Problem is new. - Symptoms are unchanged. Historical: - Allergies: SULFA (SULFONAMIDES) (Rash); Latex (Hives, Rash); - Home Meds: 1. Humalog 100 unit/mL Sub-Q soln 10 units (Last dose: 04/25/2016 12:45) 2. levemir 75 units per day (Last dose: 04/24/2016 22:00) 3. metformin 1,000 mg Oral tab 1 tab 2 times per day (Last dose: 04/25/2016 12:45) 4. fenofibrate 160 mg oral tab 1 tab once daily (Last dose: 04/24/2016 21:00) 5. atorvastatin 80 mg oral tab 1 tab once daily (Last dose: 04/24/2016 21:00) 6. topiramate 50 mg oral cp24 1 cap once daily (Last dose: 04/25/2016 09:00) 7. topiramate 100 mg oral CSpX 1 cap once daily (Last dose: 04/24/2016 21:00) 8. gabapentin 600 mg Oral Tb24 twice daily (Last dose: 04/25/2016 09:00) 9. citalopram 10 mg Oral tab 1 tab once daily 10. Vitamin D Oral 50,000 unit weekly 11. Lisinopril Oral .25 mg (pt is unsure of dosage) - PMHx: Diabetes - IDDM: controlled; High Cholesterol; Migraines; Anxiety; - PSHx: ; D & C; Carpal Tunnel Repair- Left; Carpal Tunnel Repair- Right; Tonsillectomy; - Social history: Smoking status: Patient states was never smoker of tobacco. No barriers to communication noted, The patient speaks fluent [place], Speaks appropriately for age, Preferred Language: [place]. - Family history: Not pertinent. - : The pt / caregiver states he / she is not on anticoagulants. Home medication list is obtained from the patient. 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 8 in. (142.24 cm) (R); 19:27 BP 121 / 76; Pulse 124; Resp 18; Pulse Ox 98% on R/A; Pain 8/10; lf1 20:54 BP 127 / 70; Pulse 110; Resp 20 S; Pulse Ox 96% on R/A; Pain 7/10; ms2 21:31 BP 112 / 67; Pulse 101; Resp 20 S; Pulse Ox 99% on R/A; ms2 23:00 BP 107 / 67; Pulse 103; Resp 20 S; Temp 99.6(O); Pulse Ox 96% on R/A; ms2 18:04 Body Mass Index 43.05 (87.09 kg, 142.24 cm) dd6 MDM: 18:35 If pre-RCE wait time >60 minutes, inform reg. staff to do full reg ordered. kr3 18:35 If pt is female >10yo <50yo order UCG ordered. kr3 18:35 Undress patient appropriately for examination ordered. kr3 18:36 BMP Ordered. EDMS 18:36 CBC with Diff Ordered. EDMS 18:36 HCG,Serum Qualitative Ordered. EDMS 18:36 UA Ordered. EDMS 18:36 NOTHING BY MOUTH+DIET ordered. EDMS 20:06 Financial registration complete. zo 20:07 NS 0.9% 1000 ml IV at bolus once ordered. mo1 20:07 Ondansetron 4 mg IVP once ordered. mo1 20:07 IV Saline Lock ordered. mo1 20:07 CT ABD & PELVIS: IV Contrast Only Ordered. EDMS 20:08 NOTHING BY MOUTH+DIET ordered. EDMS 20:14 UA Reviewed. mo1 20:14 CBC with Diff Reviewed. mo1 20:15 BMP Reviewed. mo1 20:15 HCG,Serum Qualitative Reviewed. mo1 20:18 [facility] [place] Payment Agreement was scanned into [employer] and attached to record. zo 20:28 morphine 4 mg IVP once ordered. mo1 21:21 -US Pelvic Non-Ob Complete Ordered. EDMS 21:21 DUPLEX SCAN LIMITED (DOPPLER)+US Ordered. EDMS 21:23 ketorolac 30 mg IVP once ordered. mo1 21:34 LIVER PROFILE Reviewed. mo1 21:34 BMP Reviewed. mo1 21:34 AMYLASE Reviewed. mo1 21:38 HCG,Serum Qualitative Reviewed. mo1 21:39 CT ABD & PELVIS: IV Contrast Only Reviewed. mo1 21:44 LIPASE Reviewed. mo1 22:19 LIVER PROFILE Reviewed. mo1 22:19 LIPASE Reviewed. mo1 22:19 AMYLASE Reviewed. mo1 22:20 BMP Reviewed. mo1 22:20 HCG,Serum Qualitative Reviewed. mo1 22:26 Transvaginal NON- US Ordered. EDMS 22:49 HYDROcodone-acetaminophen 4 pack- 5 mg-325 mg 1 packets PO Per package directions; mo1 Dispense with patient. 1 po q4h prn for pain ordered. 04/26 02:28 T-Sheet-- Draft Copy was scanned into [employer] and attached to record. hs2 11:03 Radiology Report was scanned into [employer] and attached to record. gb Administered Medications: 04/25 04:00 Drug: morphine 4 mg [morphine 4 mg/mL intravenous cartridge (1 mL)] Route: IVP; Site: ms2 right antecubital; 20:54 Follow up: BP 127 / 70; Pulse 110 bpm; Resp 20 bpm Spontaneous; Pulse Ox 96% RA; Pain ms2 10/09 Adult; down from a 11/09 20:27 Drug: NS 0.9% 1000 ml [sodium chloride 0.9 % intravenous solution] Route: IV; Rate: ms2 bolus; Site: right antecubital; 20:27 Drug: Ondansetron 4 mg Route: IVP; Site: right antecubital; ms2 21:27 Drug: ketorolac 30 mg [ketorolac 30 mg/mL (1 mL) injection solution (1 mL)] Route: IVP; ms2 Site: right antecubital; 21:31 Follow up: BP 112 / 67; Pulse 101 bpm; Resp 20 bpm Spontaneous; Pulse Ox 99% RA ms2 23:01 Drug: HYDROcodone-acetaminophen 4 pack- 1 packets [hydrocodone 5 mg-acetaminophen 325 ms2 mg tablet (1 tabs)] {Co-Signature: [id number] (Dawna Estevez RN).} Route: PO; Addendum: 05/01/2016 13:27 Radiology Callback: Radiology results faxed to primary care physician/provider. dr alissa kwong faxed formal report of pelvic us for fu mlg. 13:31 Radiology Callback: dr kwong also faaxed ct abd/p report mlg. ml Signatures: Dispatcher [employer] Chantale Wharton MD MD ml Sobkiewicz, Michele,RN RN ms2 Susannah Kuhn, Reg Reg gb Sirisha Clark RN RN kr3 Rocio Sheldon LisaRN RN lf1 Alan Griffith PA PA mo1 Aniya Mcdermott, Reg Reg hs2 Dawna Estevez RN ms18 The chart was reviewed and I authenticate all verbal orders and agree with the evaluation and treatment provided.Corrections: (The following items were deleted from the chart) 04/25 20:17 20:07 URINALYSIS+LAB ordered. EDMS EDMS 21:00 20:07 AMYLASE+LAB ordered. EDMS EDMS 21:00 20:07 LIPASE+LAB ordered. EDMS EDMS 21:00 20:07 LIVER PROFILE+LAB ordered. EDMS EDMS Attachments: 20:18 [facility] Payment Agreement zo 04/26 02:28 T-Sheet-- Draft Copy hs2 MTDD
--- NOTE | 2016-05-01 13:33 | EDDOCDS ---
Physician Documentation [facility] Name: Abbie Mojica Age: 40 yrs Sex: Female : 1975 Arrival Date: 04/25/2016 Time: 18:02 Bed I4 / M4 Private MD: Alverto Ibarra Disposition: 04/25/16 22:50 Discharged to Home/Self Care. Impression: Other ovarian cysts - right complex. - Condition is Stable. - Discharge Instructions: Ovarian Cyst. - Prescriptions for [place] 5- 325 mg Oral Tablet - take 1 tablet by ORAL route every 6 hours As needed MDD: 4 tabs; 20 tablet. ZOFRAN ODT 4 mg - dissolve 1 tablet by ORAL route 4 times per day As needed do not chew, do not swallow whole; 10 tablet. - Medication Reconciliation, Local Pharmacy Hours form. - Follow up: Luis Kwong MD; When: Call to arrange an appointment; Reason: Recheck today's complaints, Continuance of care. - Problem is new. - Symptoms are unchanged. Historical: - Allergies: SULFA (SULFONAMIDES) (Rash); Latex (Hives, Rash); - Home Meds: 1. Humalog 100 unit/mL Sub-Q soln 10 units (Last dose: 04/25/2016 12:45) 2. levemir 75 units per day (Last dose: 04/24/2016 22:00) 3. metformin 1,000 mg Oral tab 1 tab 2 times per day (Last dose: 04/25/2016 12:45) 4. fenofibrate 160 mg oral tab 1 tab once daily (Last dose: 04/24/2016 21:00) 5. atorvastatin 80 mg oral tab 1 tab once daily (Last dose: 04/24/2016 21:00) 6. topiramate 50 mg oral cp24 1 cap once daily (Last dose: 04/25/2016 09:00) 7. topiramate 100 mg oral CSpX 1 cap once daily (Last dose: 04/24/2016 21:00) 8. gabapentin 600 mg Oral Tb24 twice daily (Last dose: 04/25/2016 09:00) 9. citalopram 10 mg Oral tab 1 tab once daily 10. Vitamin D Oral 50,000 unit weekly 11. Lisinopril Oral .25 mg (pt is unsure of dosage) - PMHx: Diabetes - IDDM: controlled; High Cholesterol; Migraines; Anxiety; - PSHx: ; D & C; Carpal Tunnel Repair- Left; Carpal Tunnel Repair- Right; Tonsillectomy; - Social history: Smoking status: Patient states was never smoker of tobacco. No barriers to communication noted, The patient speaks fluent [place]i, Speaks appropriately for age, Preferred Language: [place]i. - Family history: Not pertinent. - : The pt / caregiver states he / she is not on anticoagulants. Home medication list is obtained from the patient. 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 8 in. (142.24 cm) (R); 19:27 BP 121 / 76; Pulse 124; Resp 18; Pulse Ox 98% on R/A; Pain 8/10; lf1 20:54 BP 127 / 70; Pulse 110; Resp 20 S; Pulse Ox 96% on R/A; Pain 7/10; ms2 21:31 BP 112 / 67; Pulse 101; Resp 20 S; Pulse Ox 99% on R/A; ms2 23:00 BP 107 / 67; Pulse 103; Resp 20 S; Temp 99.6(O); Pulse Ox 96% on R/A; ms2 18:04 Body Mass Index 43.05 (87.09 kg, 142.24 cm) dd6 MDM: 18:35 If pre-RCE wait time >60 minutes, inform reg. staff to do full reg ordered. kr3 18:35 If pt is female >10yo <50yo order UCG ordered. kr3 18:35 Undress patient appropriately for examination ordered. kr3 18:36 BMP Ordered. EDMS 18:36 CBC with Diff Ordered. EDMS 18:36 HCG,Serum Qualitative Ordered. EDMS 18:36 UA Ordered. EDMS 18:36 NOTHING BY MOUTH+DIET ordered. EDMS 20:06 Financial registration complete. zo 20:07 NS 0.9% 1000 ml IV at bolus once ordered. mo1 20:07 Ondansetron 4 mg IVP once ordered. mo1 20:07 IV Saline Lock ordered. mo1 20:07 CT ABD & PELVIS: IV Contrast Only Ordered. EDMS 20:08 NOTHING BY MOUTH+DIET ordered. EDMS 20:14 UA Reviewed. mo1 20:14 CBC with Diff Reviewed. mo1 20:15 BMP Reviewed. mo1 20:15 HCG,Serum Qualitative Reviewed. mo1 20:18 [facility] [place] Payment Agreement was scanned into [employer] and attached to record. zo 20:28 morphine 4 mg IVP once ordered. mo1 21:21 -US Pelvic Non-Ob Complete Ordered. EDMS 21:21 DUPLEX SCAN LIMITED (DOPPLER)+US Ordered. EDMS 21:23 ketorolac 30 mg IVP once ordered. mo1 21:34 LIVER PROFILE Reviewed. mo1 21:34 BMP Reviewed. mo1 21:34 AMYLASE Reviewed. mo1 21:38 HCG,Serum Qualitative Reviewed. mo1 21:39 CT ABD & PELVIS: IV Contrast Only Reviewed. mo1 21:44 LIPASE Reviewed. mo1 22:19 LIVER PROFILE Reviewed. mo1 22:19 LIPASE Reviewed. mo1 22:19 AMYLASE Reviewed. mo1 22:20 BMP Reviewed. mo1 22:20 HCG,Serum Qualitative Reviewed. mo1 22:26 Transvaginal NON- US Ordered. EDMS 22:49 HYDROcodone-acetaminophen 4 pack- 5 mg-325 mg 1 packets PO Per package directions; mo1 Dispense with patient. 1 po q4h prn for pain ordered. 04/26 02:28 T-Sheet-- Draft Copy was scanned into [employer] and attached to record. hs2 11:03 Radiology Report was scanned into [employer] and attached to record. gb Administered Medications: 04/25 04:00 Drug: morphine 4 mg [morphine 4 mg/mL intravenous cartridge (1 mL)] Route: IVP; Site: ms2 right antecubital; 20:54 Follow up: BP 127 / 70; Pulse 110 bpm; Resp 20 bpm Spontaneous; Pulse Ox 96% RA; Pain ms2 10/09 Adult; down from a 11/09 20:27 Drug: NS 0.9% 1000 ml [sodium chloride 0.9 % intravenous solution] Route: IV; Rate: ms2 bolus; Site: right antecubital; 20:27 Drug: Ondansetron 4 mg Route: IVP; Site: right antecubital; ms2 21:27 Drug: ketorolac 30 mg [ketorolac 30 mg/mL (1 mL) injection solution (1 mL)] Route: IVP; ms2 Site: right antecubital; 21:31 Follow up: BP 112 / 67; Pulse 101 bpm; Resp 20 bpm Spontaneous; Pulse Ox 99% RA ms2 23:01 Drug: HYDROcodone-acetaminophen 4 pack- 1 packets [hydrocodone 5 mg-acetaminophen 325 ms2 mg tablet (1 tabs)] {Co-Signature: [id number] (Dawna Estevez RN).} Route: PO; Addendum: 05/01/2016 13:27 Radiology Callback: Radiology results faxed to primary care physician/provider. dr alissa kwong faxed formal report of pelvic us for fu mlg. 13:31 Radiology Callback: dr kwong also faaxed ct abd/p report mlg. ml Signatures: Dispatcher [employer] Chantale Wharton MD MD ml Sobkiewicz, Michele,RN RN ms2 Susannah Kuhn, Reg Reg gb Sirisha Clark RN RN kr3 Rocio Sheldon LisaRN RN lf1 Alan Griffith PA PA mo1 Aniya Mcdermott, Reg Reg hs2 Dawna Estevez RN ms18 The chart was reviewed and I authenticate all verbal orders and agree with the evaluation and treatment provided.Corrections: (The following items were deleted from the chart) 04/25 20:17 20:07 URINALYSIS+LAB ordered. EDMS EDMS 21:00 20:07 AMYLASE+LAB ordered. EDMS EDMS 21:00 20:07 LIPASE+LAB ordered. EDMS EDMS 21:00 20:07 LIVER PROFILE+LAB ordered. EDMS EDMS Attachments: 20:18 [facility] Payment Agreement zo 04/26 02:28 T-Sheet-- Draft Copy hs2 Chart Complete MTDD
--- NOTE | 2016-05-01 13:33 | EDDOCDS ---
Nurse's Notes [facility] Name: Abbie Mojica Age: 40 yrs Sex: Female : 1975 Arrival Date: 04/25/2016 Time: 18:02 Bed I4 / M4 Private MD: Alverto Ibarra Diagnosis: Other ovarian cysts-right complex Presentation: 04/25 18:21 Presenting complaint: Patient states: Lower abdominal pain that has been ongoing for 5 lf1 days and radiates to her back. Pt reports pain is currently 9/10 with nausea. Pt reports that her PCP is Dr. Ibarra at [facility]. Adult Sepsis Screening: The patient does not have new or worsening altered mentation. Patient's respiratory rate is less than 22. Systolic blood pressure is greater than 100. Patient has a qSOFA score of 0- Negative Sepsis Screen. Suicide/Homicide risk assessment- the patient denies having any suicidal and/or homicidal ideations and does not present with any other emotional, behavioral or mental health complaints. 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 Transition of care: patient was not received from another setting of care. 18:21 Acuity: JIMMY Level 3 lf1 18:21 Method Of Arrival: Walkin/Carried/Asstd lf1 Triage Assessment: 18:30 General: Appears obese, Behavior is cooperative. Pain: Location: abdomen Pain currently lf1 is 8 out of 10 on a pain scale. HIV screening NA for this visit Offered previously. Neurological: Level of Consciousness is awake, alert. Respiratory: Respiratory effort is even, unlabored. GI: Abdomen is obese, Reports lower abdominal pain, nausea. Derm: Skin is normal. 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 Humalog 100 unit/mL Sub-Q soln 10 units (Last dose: 04/25/2016 12:45) 2. levemir 75 units per day (Last dose: 04/24/2016 22:00) 3. metformin 1,000 mg Oral tab 1 tab 2 times per day (Last dose: 04/25/2016 12:45) 4. fenofibrate 160 mg oral tab 1 tab once daily (Last dose: 04/24/2016 21:00) 5. atorvastatin 80 mg oral tab 1 tab once daily (Last dose: 04/24/2016 21:00) 6. topiramate 50 mg oral cp24 1 cap once daily (Last dose: 04/25/2016 09:00) 7. topiramate 100 mg oral CSpX 1 cap once daily (Last dose: 04/24/2016 21:00) 8. gabapentin 600 mg Oral Tb24 twice daily (Last dose: 04/25/2016 09:00) 9. citalopram 10 mg Oral tab 1 tab once daily 10. Vitamin D Oral 50,000 unit weekly 11. Lisinopril Oral .25 mg (pt is unsure of dosage) - PMHx: Diabetes - IDDM: controlled; High Cholesterol; Migraines; Anxiety; - PSHx: ; D & C; Carpal Tunnel Repair- Left; Carpal Tunnel Repair- Right; Tonsillectomy; - Social history: Smoking status: Patient states was never smoker of tobacco. No barriers to communication noted, The patient speaks fluent Mauritanian, Speaks appropriately for age, Preferred Language: Mauritanian. - Family history: Not pertinent. - : The pt / caregiver states he / she is not on anticoagulants. Home medication list is obtained from the patient. 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 Screenin:32 Screening information is obtained from the patient. Fall risk: No risks identified. lf1 Assistance ADL's: requires no assistance with activities of daily living. Abuse/DV Screen: The patient / caregiver reports he/she is: not in a situation that causes fear, pain or injury. Nutritional screening: On diabetic diet. Advance Directives: Currently, there is no health care proxy. There is no active DNR order. home support is adequate. Assessment: 19:27 Adult Sepsis Screening: The patient does not have new or worsening altered mentation. lf1 Patient's respiratory rate is less than 22. Systolic blood pressure is greater than 100. Patient has a qSOFA score of 0- Negative Sepsis Screen. General: Appears uncomfortable, Behavior is cooperative. Pain: Location: right lower quadrant and left lower quadrant Pain currently is 8 out of 10 on a pain scale. Quality of pain is described as sharp. Neurological: Level of Consciousness is awake, alert, Oriented to person, place. EENT: No deficits noted. Cardiovascular: Chest pain is denied. Respiratory: Respiratory effort is even, unlabored. GI: Abdomen is obese, Reports lower abdominal pain. : Denies burning with urination. Derm: No deficits noted. 20:28 General: Appears in no apparent distress. Pain: Location: left lower quadrant and right ms2 lower quadrant Pain currently is 8 out of 10 on a pain scale. Respiratory: No deficits noted. Derm: Skin is pink, warm & dry. Musculoskeletal: No deficits noted. 20:45 General: back from ct ---no reaction to iv contrast. Neurological: No deficits noted. ms2 Respiratory: Respiratory effort is even, unlabored. Derm: Skin is pink, warm & dry. 20:55 General: medicated for pain per order. Neurological: No deficits noted. Respiratory: ms2 Airway is patent Respiratory effort is even, unlabored, Respiratory pattern is regular, symmetrical. Derm: Skin is pink, warm & dry. 21:31 General: Appears in no apparent distress, medicated for pain. Pain: Pain currently is 7 ms2 out of 10 on a pain scale. Neurological: No deficits noted. Respiratory: Respiratory effort is even, unlabored. Derm: Skin is pink, warm & dry. Musculoskeletal: No deficits noted. 22:42 General: Appears in no apparent distress, Behavior is cooperative. Pain: Location: pt ms2 declines anything for pain presently Pain currently is 8 out of 10 on a pain scale. Neurological: Level of Consciousness is awake, alert, obeys commands. Respiratory: Respiratory effort is even, unlabored. GI: Abdomen is non- distended obese. Derm: Skin is pink, warm & dry. Musculoskeletal: Range of motion intact in all extremities. Vital Signs: 18:04 BP 135 / 89; Pulse 130; Resp 18 S; Temp 99.8(O); Pulse Ox 99% on R/A; Weight 87.09 kg dd6 (R); Height 4 ft. 8 in. (142.24 cm) (R); 19:27 BP 121 / 76; Pulse 124; Resp 18; Pulse Ox 98% on R/A; Pain 8/10; lf1 20:54 BP 127 / 70; Pulse 110; Resp 20 S; Pulse Ox 96% on R/A; Pain 7/10; ms2 21:31 BP 112 / 67; Pulse 101; Resp 20 S; Pulse Ox 99% on R/A; ms2 23:00 BP 107 / 67; Pulse 103; Resp 20 S; Temp 99.6(O); Pulse Ox 96% on R/A; ms2 18:04 Body Mass Index 43.05 (87.09 kg, 142.24 cm) dd6 Vitals: 18:04 Log In Time: April 25, 2016 at 18:02. dd6 ED Course: 18:03 Patient visited by Guerrero Pal PCA. dd6 18:03 Patient moved to Waiting dd6 18:04 Alverto Ibarra is Private Physician. dd6 18:05 Patient moved to Pre RCE dd6 18:23 Triage Initiated lf1 18:35 Patient moved to PR1 / 25 mdr 18:48 Patient moved to Pre RCE mdr 18:48 BMP Sent. mdr 18:48 CBC with Diff Sent. mdr 18:48 HCG,Serum Qualitative Sent. mdr 18:48 UA Sent. mdr 19:25 Patient moved to Triage 1 lf1 19:29 Patient visited by Zulema Capellan RN. lf1 19:33 Alan Griffith PA is PHCP. mo1 19:33 Beto Perez MD is Attending Physician. mo1 19:49 Patient visited by Alan Griffith PA. mo1 19:54 Patient moved to I4 / M4 mdr 20:18 [facility] [place] Agreement was scanned into [employer] and attached to record. zo 20:28 The patient / caregiver is instructed regarding the plan of care and ED course. ms2 20:28 Inserted peripheral IV: 20gauge IV in right hand Patient tolerated the procedure well. ms2 No procedures done that require assistance. 20:53 Patient visited by Kamlesh Browning RN. ms2 20:54 The patient / caregiver is instructed regarding the plan of care and ED course. ms2 20:54 IV is patent, is intact, is free of redness or swelling. solution is infusing as ms2 ordered. 20:56 The patient / caregiver is instructed regarding the plan of care and ED course. ms2 21:22 CT ABD & PELVIS: IV Contrast Only Returned. EDMS 21:24 Patient visited by Kamlesh Browning RN. ms2 21:32 The patient / caregiver is instructed regarding the plan of care and ED course. ms2 21:32 IV is patent, is intact, is free of redness or swelling. solution is infusing as ms2 ordered. 22:00 Patient moved to Ultrasound dmg 22:22 Patient moved to I4 / M4 dmg 22:42 Patient visited by Kamlesh Browning RN. ms2 22:43 The patient / caregiver is instructed regarding the plan of care and ED course. ms2 22:43 Discontinued lock intact, bleeding controlled, pressure dressing applied, No ms2 redness/swelling at site. SL clotted--ok to remove per PA. 22:50 Luis Wilcox MD is Referral Physician. mo1 23:02 The patient / caregiver is instructed regarding the plan of care and ED course. ms2 23:24 -US Pelvic Non-Ob Complete Returned. EDMS 04/26 02:28 T-Sheet-- Draft Copy was scanned into [employer] and attached to record. hs2 11:03 Radiology Report was scanned into [employer] and attached to record. gb Administered Medications: 04/25 04:00 Drug: morphine 4 mg [morphine 4 mg/mL intravenous cartridge (1 mL)] Route: IVP; Site: ms2 right antecubital; 20:54 Follow up: BP 127 / 70; Pulse 110 bpm; Resp 20 bpm Spontaneous; Pulse Ox 96% RA; Pain ms2 10/09 Adult; down from a 810 20:27 Drug: NS 0.9% 1000 ml [sodium chloride 0.9 % intravenous solution] Route: IV; Rate: ms2 bolus; Site: right antecubital; 20:27 Drug: Ondansetron 4 mg Route: IVP; Site: right antecubital; ms2 21:27 Drug: ketorolac 30 mg [ketorolac 30 mg/mL (1 mL) injection solution (1 mL)] Route: IVP; ms2 Site: right antecubital; 21:31 Follow up: BP 112 / 67; Pulse 101 bpm; Resp 20 bpm Spontaneous; Pulse Ox 99% RA ms2 23:01 Drug: HYDROcodone-acetaminophen 4 pack- 1 packets [hydrocodone 5 mg-acetaminophen 325 ms2 mg tablet (1 tabs)] {Co-Signature: ms18 (Dawna Estevez RN).} Route: PO; Intake: 22:44 PO: 0.00ml; IV: 1000.00ml (NS); Total: 1000.00ml. ms2 22:44 voided x1 in ed ms2 Order Results: Lab Order: BMP; SPEC'M 04/25/16 18:44 Test: GLUCOSE, FASTING; Value: 160; Range: 70-105; Abnormal: Above high normal; Units: MG/DL; Status: F Test: BLOOD UREA NITROGEN; Value: 11; Range: 7-18; Units: MG/DL; Status: F Test: CREATININE FOR GFR; Value: 1.02; Range: 0.55-1.02; Units: MG/DL; Status: F Test: SODIUM LEVEL; Range: 136-145; Units: MEQ/L; Status: I Test: POTASSIUM SERUM; Range: 3.5-5.1; Units: MEQ/L; Status: I Test: CHLORIDE LEVEL; Range: 98-107; Units: MEQ/L; Status: I Test: CARBON DIOXIDE LEVEL; Range: 21-32; Units: MEQ/L; Status: I Test: ANION GAP; Range: 8-16; Units: MEQ/L; Status: I Test: CALCIUM LEVEL; Range: 8.5-10.1; Units: MG/DL; Status: I Test: GLOMERULAR FILTRATION RATE; Value: > 60.0; Range: >60; Status: F Test: SODIUM LEVEL; Value: 140; Range: 136-145; Units: MEQ/L; Status: F Test: POTASSIUM SERUM; Value: 3.7; Range: 3.5-5.1; Units: MEQ/L; Status: F Test: CHLORIDE LEVEL; Value: 105; Range: 98-107; Units: MEQ/L; Status: F Test: CARBON DIOXIDE LEVEL; Value: 23; Range: 21-32; Units: MEQ/L; Status: F Test: ANION GAP; Value: 12; Range: 8-16; Units: MEQ/L; Status: F Test: CALCIUM LEVEL; Value: 9.4; Range: 8.5-10.1; Units: MG/DL; Status: F Test Note: ; Units are mL/min/1.73 m2 Chronic Kidney Disease Staging per NKF: Stage I & II GFR >=60 Normal to Mildly Decreased Stage III GFR 30-59 Moderately Decreased Stage IV GFR 15-29 Severely Decreased Stage V GFR <15 Very Little GFR Left ESRD GFR <15 on [employer] Lab Order: CBC with Diff; SPEC'M 04/25/16 18:44 Test: WHITE BLOOD COUNT; Value: 14.3; Range: 4.0-10.0; Abnormal: Above high normal; Units: K/mm3; Status: F Test: RED BLOOD COUNT; Value: 4.53; Range: 4.00-5.40; Units: M/mm3; Status: F Test: HEMOGLOBIN; Value: 13.2; Range: 12.0-16.0; Units: g/dl; Status: F Test: HEMATOCRIT; Value: 41.1; Range: 36.0-47.0; Units: %; Status: F Test: MEAN CORPUSCULAR VOLUME; Value: 90.8; Range: 80.0-96.0; Units: fl; Status: F Test: MEAN CORPUSCULAR HEMOGLOBIN; Value: 29.1; Range: 27.0-33.0; Units: pg; Status: F Test: MEAN CORPUSCULAR HGB CONC; Value: 32.0; Range: 32.0-36.5; Units: g/dl; Status: F Test: RED CELL DISTRIBUTION WIDTH; Value: 14.2; Range: 11.5-14.5; Units: %; Status: F Test: PLATELET COUNT, AUTOMATED; Value: 506; Range: 150-450; Abnormal: Above high normal; Units: k/mm3; Status: F Test: NEUTROPHILS %; Value: 57.3; Range: 36.0-66.0; Units: %; Status: F Test: LYMPH %; Value: 30.3; Range: 24.0-44.0; Units: %; Status: F Test: MONO %; Value: 4.5; Range: 0.0-5.0; Units: %; Status: F Test: EOS %; Value: 4.1; Range: 0.0-3.0; Abnormal: Above high normal; Units: %; Status: F Test: BASO %; Value: 1.7; Range: 0.0-1.0; Abnormal: Above high normal; Units: %; Status: F Test: LARGE UNSTAINED CELL %; Value: 2.1; Range: 0.0-4.0; Units: %; Status: F Test: NEUTROPHILS #; Value: 8.2; Range: 1.8-7.7; Abnormal: Above high normal; Units: K/mm3; Status: F Test: LYMPH #; Value: 4.6; Range: 1.5-4.5; Abnormal: Above high normal; Units: K/mm3; Status: F Test: MONO #; Value: 0.6; Range: 0.0-0.8; Units: K/mm3; Status: F Test: EOS #; Value: 0.6; Range: 0.0-0.50; Abnormal: Above high normal; Units: K/mm3; Status: F Test: BASO #; Value: 0.2; Range: 0.0-0.2; Units: K/mm3; Status: F Test: LARGE UNSTAINED CELL #; Value: 0.3; Range: 0.0-0.4; Units: K/mm3; Status: F Lab Order: HCG,Serum Qualitative; SPEC'M 04/25/16 18:44 Test: HCG, SERUM QUALITATIVE; Value: NEGATIVE; Range: NEGATIVE; Status: F Lab Order: UA; SPEC'M 04/25/16 18:44 Test: APPEARANCE, URINE; Value: CLOUDY; Range: CLEAR; Abnormal: Above high normal; Status: F Test: COLOR, URINE; Value: YELLOW; Range: YELLOW; Status: F Test: PH,URINE; Value: 5.0; Range: 5.0-9.0; Units: UNITS; Status: F Test: SPECIFIC GRAVITY URINE AUTO; Value: 1.023; Range: 1.002-1.035; Status: F Test: PROTEIN, URINE AUTO; Value: NEGATIVE; Range: NEGATIVE; Units: mg/dL; Status: F Test: GLUCOSE, URINE (UA) AUTO; Value: NEGATIVE; Range: NEGATIVE; Units: mg/dL; Status: F Test: KETONE, URINE AUTO; Value: NEGATIVE; Range: NEGATIVE; Units: mg/dL; Status: F Test: UROBILINOGEN, URINE AUTO; Value: 0.2; Range: 0.0-2.0; Units: mg/dL; Status: F Test: BILIRUBIN, URINE AUTO; Value: NEGATIVE; Range: NEGATIVE; Status: F Test: NITRITE, URINE AUTO; Value: NEGATIVE; Range: NEGATIVE; Status: F Test: LEUKOCYTE ESTERASE, URINE AUTO; Value: NEGATIVE; Range: NEGATIVE; Status: F Test: BLOOD, URINE BLOOD; Value: NEGATIVE; Range: NEGATIVE; Status: F Test: WBC, URINE AUTO; Value: 2; Range: 0-3; Units: /HPF; Status: F Test: RBC, URINE AUTO; Value: 3; Range: 0-3; Units: /HPF; Status: F Test: BACTERIA, URINE AUTO; Value: 1+; Range: NEGATIVE; Abnormal: Above high normal; Status: F Test: SQUAMOUS EPITHELIAL CELL UR AU; Value: 21; Range: 0-6; Units: /HPF; Status: F Test: MUCUS, URINE; Value: SMALL; Range: NEGATIVE; Status: F Test: HYALINE CAST, URINE AUTO; Value: 0; Range: 0-1; Units: /LPF; Status: F Test: CALCIUM OXALATE CRYSTALS; Value: LARGE; Range: NONE; Status: F Lab Order: LIVER PROFILE; SPEC'M 04/25/16 18:44 Test: AST/SGOT; Value: 13; Range: 15-37; Abnormal: Below low normal; Units: U/L; Status: F Test: ALT/SGPT; Value: 29; Range: 12-78; Units: U/L; Status: F Test: ALKALINE PHOSPHATASE; Value: 90; Range: 45-117; Units: U/L; Status: F Test: BILIRUBIN,TOTAL; Value: 0.3; Range: 0.2-1.0; Units: MG/DL; Status: F Test: BILIRUBIN,DIRECT; Value: 0.1; Range: 0.0-0.2; Units: MG/DL; Status: F Test: TOTAL PROTEIN; Value: 7.7; Range: 6.4-8.2; Units: GM/DL; Status: F Test: ALBUMIN; Value: 3.8; Range: 3.2-5.2; Units: GM/DL; Status: F Test: ALBUMIN/GLOBULIN RATIO; Value: 0.97; Range: 1.00-1.93; Abnormal: Below low normal; Status: F Lab Order: AMYLASE; SPEC'M 04/25/16 18:44 Test: AMYLASE; Value: 38; Range: 25-115; Units: U/L; Status: F Lab Order: LIPASE; SPEC'M 04/25/16 18:44 Test: LIPASE; Value: 114; Range: 73-393; Units: U/L; Status: F Radiology Order: CT ABD & PELVIS: IV Contrast Only Test: CT ABD & PELVIS: IV Contrast Only REASON FOR EXAMINATION: Diverticulitis; ; CT of the abdomen and pelvis with contrast; Clinical statement: Pain.; Technique: Multiple axial CT images were obtained from the base of the lungs through the floor of the; pelvis utilizing 5 mm axial slices after administration of nonionic intravenous contrast. Coronal an; d sagittal reconstructions were also obtained.; No comparison is available.; Findings:; Chest: The visualized lung bases are clear.; Abdomen: The liver, spleen, pancreas, kidneys, gallbladder, and adrenal glands are unremarkable. The; aorta is within normal limits. There is no evidence of abdominal lymphadenopathy or ascites.; Pelvis: The bowel is unremarkable, with no obstructive or inflammatory changes. The appendix is maria luisa; l. The urinary bladder is within normal limits. The other pelvic structures appear grossly intact. Th; ere is a large cystic lesion in the right ovary measuring 6.8 x 8.1 cm. There is no evidence of pelvi; c lymphadenopathy or ascites.; Bones: There are no suspicious osseous abnormalities seen.; Impression: Large simple cyst in the right ovary as described. Because of the large size of this lesi; on, a follow-up ultrasound in 6 to 12 weeks to evaluate for resolution of this cyst is recommended.; ; Radiology Order: -US Pelvic Non-Ob Complete Test: -US Pelvic Non-Ob Complete REASON FOR EXAMINATION: right ov cyst 6x8cm;Adnexal Pain r/o Torsion; ; Clinical history: Pain.; Comparison: CT, 04/25/2016.; Findings: Real-time transabdominal and transvaginal ultrasound images of the pelvis were obtained. An; anteverted uterus is noted, measuring 9.7 x 5.0 x 5.1 cm. The uterus demonstrates normal echotextur; e and echogenicity. The endometrial stripe measures 5 mm and is within normal limits. The right ovary; measures 8.2 x 6.5 x 9.0 cm. There is a right ovarian cystic lesion measuring 6.1 x 6.2 x 7.3 cm. Th; e left ovary was not clearly visualized. There is no evidence of free fluid.; Impression: Large right ovarian cyst, corresponding to the lesion seen on the prior CT study. Follow-; up in 6 to 12 weeks is recommended.; ; Outcome: 22:50 Discharge ordered by Provider. mo1 23:01 Discharge Assessment: patient administered narcotics - yes. Pt provided with safe ms2 discharge. The following High Risk Discharge criteria are identified: None. Discharged to home ambulatory, with significant other. Condition: stable. Discharge instructions given to patient, Instructed on discharge instructions, follow up and referral plans. medication usage, no driving heavy equipment, no drinking with medication, Demonstrated understanding of instructions, medications, Pt was receptive of discharge instructions/ teaching. Prescriptions given X [address] Study completed. Ultrasound Study completed. Property sent home with patient. 23:02 Patient left the ED. ms2 Signatures: Dispatcher [employer] EDMS Kamlesh Browning,RN RN ms2 Crystal Islas Gloria, Reg Reg gb Rocio Sheldon LisaRN RN lf1 Guerrero Pal, SURVEY METHODOLOGIST SURVEY METHODOLOGIST dd6 Alan Griffith PA PA mo1 Helio Christianson, SURVEY METHODOLOGIST SURVEY METHODOLOGIST mdr Aniya Mcdermott, Reg Reg hs2 Dawna Estevez RN ms18 Corrections: (The following items were deleted from the chart) 20:17 20:14 URINALYSIS+LAB sent. mo1 EDMS 21:00 20:11 AMYLASE+LAB sent. ms2 EDMS 21:00 20:11 LIPASE+LAB sent. ms2 EDMS 21:00 20:11 LIVER PROFILE+LAB sent. ms2 EDMS 22:44 22:42 Pain: Pain currently is 8 out of 10 on a pain scale. ms2 ms2 Chart Complete MTDD
--- NOTE | 2016-05-01 13:33 | EDDOCDS ---
Physician Documentation [facility] Name: Abbie Mojica Age: 40 yrs Sex: Female : 1975 Arrival Date: 04/25/2016 Time: 18:02 Bed I4 / M4 Private MD: Alverto Ibarra Disposition: 04/25/16 22:50 Discharged to Home/Self Care. Impression: Other ovarian cysts - right complex. - Condition is Stable. - Discharge Instructions: Ovarian Cyst. - Prescriptions for [place] 5- 325 mg Oral Tablet - take 1 tablet by ORAL route every 6 hours As needed MDD: 4 tabs; 20 tablet. ZOFRAN ODT 4 mg - dissolve 1 tablet by ORAL route 4 times per day As needed do not chew, do not swallow whole; 10 tablet. - Medication Reconciliation, Local Pharmacy Hours form. - Follow up: Luis Kwong MD; When: Call to arrange an appointment; Reason: Recheck today's complaints, Continuance of care. - Problem is new. - Symptoms are unchanged. Historical: - Allergies: SULFA (SULFONAMIDES) (Rash); Latex (Hives, Rash); - Home Meds: 1. Humalog 100 unit/mL Sub-Q soln 10 units (Last dose: 04/25/2016 12:45) 2. levemir 75 units per day (Last dose: 04/24/2016 22:00) 3. metformin 1,000 mg Oral tab 1 tab 2 times per day (Last dose: 04/25/2016 12:45) 4. fenofibrate 160 mg oral tab 1 tab once daily (Last dose: 04/24/2016 21:00) 5. atorvastatin 80 mg oral tab 1 tab once daily (Last dose: 04/24/2016 21:00) 6. topiramate 50 mg oral cp24 1 cap once daily (Last dose: 04/25/2016 09:00) 7. topiramate 100 mg oral CSpX 1 cap once daily (Last dose: 04/24/2016 21:00) 8. gabapentin 600 mg Oral Tb24 twice daily (Last dose: 04/25/2016 09:00) 9. citalopram 10 mg Oral tab 1 tab once daily 10. Vitamin D Oral 50,000 unit weekly 11. Lisinopril Oral .25 mg (pt is unsure of dosage) - PMHx: Diabetes - IDDM: controlled; High Cholesterol; Migraines; Anxiety; - PSHx: ; D & C; Carpal Tunnel Repair- Left; Carpal Tunnel Repair- Right; Tonsillectomy; - Social history: Smoking status: Patient states was never smoker of tobacco. No barriers to communication noted, The patient speaks fluent Gambian, Speaks appropriately for age, Preferred Language: Gambian. - Family history: Not pertinent. - : The pt / caregiver states he / she is not on anticoagulants. Home medication list is obtained from the patient. 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 8 in. (142.24 cm) (R); 19:27 BP 121 / 76; Pulse 124; Resp 18; Pulse Ox 98% on R/A; Pain 8/10; lf1 20:54 BP 127 / 70; Pulse 110; Resp 20 S; Pulse Ox 96% on R/A; Pain 7/10; ms2 21:31 BP 112 / 67; Pulse 101; Resp 20 S; Pulse Ox 99% on R/A; ms2 23:00 BP 107 / 67; Pulse 103; Resp 20 S; Temp 99.6(O); Pulse Ox 96% on R/A; ms2 18:04 Body Mass Index 43.05 (87.09 kg, 142.24 cm) dd6 MDM: 18:35 If pre-RCE wait time >60 minutes, inform reg. staff to do full reg ordered. kr3 18:35 If pt is female >10yo <50yo order UCG ordered. kr3 18:35 Undress patient appropriately for examination ordered. kr3 18:36 BMP Ordered. EDMS 18:36 CBC with Diff Ordered. EDMS 18:36 HCG,Serum Qualitative Ordered. EDMS 18:36 UA Ordered. EDMS 18:36 NOTHING BY MOUTH+DIET ordered. EDMS 20:06 Financial registration complete. zo 20:07 NS 0.9% 1000 ml IV at bolus once ordered. mo1 20:07 Ondansetron 4 mg IVP once ordered. mo1 20:07 IV Saline Lock ordered. mo1 20:07 CT ABD & PELVIS: IV Contrast Only Ordered. EDMS 20:08 NOTHING BY MOUTH+DIET ordered. EDMS 20:14 UA Reviewed. mo1 20:14 CBC with Diff Reviewed. mo1 20:15 BMP Reviewed. mo1 20:15 HCG,Serum Qualitative Reviewed. mo1 20:18 [facility] Payment Agreement was scanned into [employer] and attached to record. zo 20:28 morphine 4 mg IVP once ordered. mo1 21:21 -US Pelvic Non-Ob Complete Ordered. EDMS 21:21 DUPLEX SCAN LIMITED (DOPPLER)+US Ordered. EDMS 21:23 ketorolac 30 mg IVP once ordered. mo1 21:34 LIVER PROFILE Reviewed. mo1 21:34 BMP Reviewed. mo1 21:34 AMYLASE Reviewed. mo1 21:38 HCG,Serum Qualitative Reviewed. mo1 21:39 CT ABD & PELVIS: IV Contrast Only Reviewed. mo1 21:44 LIPASE Reviewed. mo1 22:19 LIVER PROFILE Reviewed. mo1 22:19 LIPASE Reviewed. mo1 22:19 AMYLASE Reviewed. mo1 22:20 BMP Reviewed. mo1 22:20 HCG,Serum Qualitative Reviewed. mo1 22:26 Transvaginal NON- US Ordered. EDMS 22:49 HYDROcodone-acetaminophen 4 pack- 5 mg-325 mg 1 packets PO Per package directions; mo1 Dispense with patient. 1 po q4h prn for pain ordered. 04/26 02:28 T-Sheet-- Draft Copy was scanned into [employer] and attached to record. hs2 11:03 Radiology Report was scanned into [employer] and attached to record. gb Administered Medications: 04/25 04:00 Drug: morphine 4 mg [morphine 4 mg/mL intravenous cartridge (1 mL)] Route: IVP; Site: ms2 right antecubital; 20:54 Follow up: BP 127 / 70; Pulse 110 bpm; Resp 20 bpm Spontaneous; Pulse Ox 96% RA; Pain ms2 10/09 Adult; down from a 11/09 20:27 Drug: NS 0.9% 1000 ml [sodium chloride 0.9 % intravenous solution] Route: IV; Rate: ms2 bolus; Site: right antecubital; 20:27 Drug: Ondansetron 4 mg Route: IVP; Site: right antecubital; ms2 21:27 Drug: ketorolac 30 mg [ketorolac 30 mg/mL (1 mL) injection solution (1 mL)] Route: IVP; ms2 Site: right antecubital; 21:31 Follow up: BP 112 / 67; Pulse 101 bpm; Resp 20 bpm Spontaneous; Pulse Ox 99% RA ms2 23:01 Drug: HYDROcodone-acetaminophen 4 pack- 1 packets [hydrocodone 5 mg-acetaminophen 325 ms2 mg tablet (1 tabs)] {Co-Signature: [id number] (Dawna Estevez RN).} Route: PO; Addendum: 05/01/2016 13:27 Radiology Callback: Radiology results faxed to primary care physician/provider. dr alissa kwong faxed formal report of pelvic us for fu mlg. 13:31 Radiology Callback: dr kwong also faaxed ct abd/p report mlg. ml Signatures: Dispatcher [employer] Chantale Wharton MD MD ml Sobkiewicz, Michele,RN RN ms2 Susannah Kuhn, Reg Reg gb Sirisha Clark RN RN kr3 Rocio Sheldon LisaRN RN lf1 Alan Griffith PA PA mo1 Aniya Mcdermott, Reg Reg hs2 Dawna Estevez RN [id number] The chart was reviewed and I authenticate all verbal orders and agree with the evaluation and treatment provided.Corrections: (The following items were deleted from the chart) 04/25 20:17 20:07 URINALYSIS+LAB ordered. EDMS EDMS 21:00 20:07 AMYLASE+LAB ordered. EDMS EDMS 21:00 20:07 LIPASE+LAB ordered. EDMS EDMS 21:00 20:07 LIVER PROFILE+LAB ordered. EDMS EDMS Attachments: 20:18 [facility] Payment Agreement zo 04/26 02:28 T-Sheet-- Draft Copy hs2 Chart Complete MTDD
== END 2016-04-25 23:02 | disposition home or self-care (01) ==
LOC: M ED 18:02
DX: N83.209 Unspecified ovarian cyst, unspecified side (principal); R10.30 Lower abdominal pain, unspecified; R11.0 Nausea; E11.9 Type 2 diabetes mellitus without complications; E78.00 Pure hypercholesterolemia, unspecified; G43.909 Migraine, unspecified, not intractable, without status migrainosus; F41.9 Anxiety disorder, unspecified; Z79.4 Long term (current) use of insulin; Z79.899 Other long term (current) drug therapy; Z88.2 Allergy status to sulfonamides; Z91.040 Latex allergy status
CPT/HCPCS: 36415; 74177; 76830; 76856; 80048; 80076; 81001; 82150; 83690; 84703; 85025; 93976; 96374; 96375; 99284; J1885; J2405; Q9967

== ENCOUNTER → 2016-05-07 | Outpatient (CLI) | payer OTHER ==
[2016-05-07 11:56] LABS: ALBUMIN 3.7 GM/DL (3.2-5.2); ALBUMIN/GLOBULIN RATIO 1.06 (1.00-1.93); ALKALINE PHOSPHATASE 71 U/L (45-117); ALT/SGPT 24 U/L (12-78); ANION GAP 10 MEQ/L (8-16); AST/SGOT 15 U/L (15-37); BILIRUBIN,TOTAL 0.3 MG/DL (0.2-1.0); BLOOD UREA NITROGEN 15 MG/DL (7-18); CARBON DIOXIDE LEVEL 24 MEQ/L (21-32); CHLORIDE LEVEL 109 MEQ/L (98-107); CHOLESTEROL LEVEL 190 MG/DL (<200); CREATININE FOR GFR 1.01 MG/DL (0.55-1.02); GLOMERULAR FILTRATION RATE > 60.0 (>60); GLUCOSE, FASTING 85 MG/DL (70-105); SODIUM LEVEL 143 MEQ/L (136-145); TOTAL PROTEIN 7.2 GM/DL (6.4-8.2); TRIGLYCERIDES LEVEL 173 MG/DL (<150)
== END ==
LOC: M LAB 10:53
PROVIDERS: ATTEND Family Medicine Addiction Medicine
DX: E11.9 Type 2 diabetes mellitus without complications (principal)